=== PATIENT | female | born 1935 | race Two or more races ===

== ENCOUNTER → 2016-06-08 | Outpatient (CLI) | payer OTHER ==
--- NOTE | 2016-06-08 14:40 | RADRPT ---
PROCEDURE: XR Knees. CLINICAL INDICATION: Bilateral knee pain. TECHNIQUE: Total of eight views. Weightbearing frontal, oblique, and lateral views of the both kn ees. Patellar views of both knees. COMPARISON: No prior study is available for comparison. FINDINGS: There is no fracture or dislocation. The soft tissues are normal. There are severe degenerative changes of both knees with osteophytes, subarticular sclerosis, latera l shift of the tibia, and deformity. There is no lytic or blastic lesion. There is no radiopaque foreign body. IMPRESSION: 1. Severe degenerative changes of both knees. RPTAT: QQ .Terrence Woodson MD, MD Date Time Electronically viewed and signed by .Terrence Woodson MD, MD on 06/08/2016 14:39 .R/
== END | disposition home or self-care (01) ==
LOC: HKI 14:12
PROVIDERS: ATTEND Orthopaedic Surgery
DX: M17.0 Bilateral primary osteoarthritis of knee (principal)
CPT/HCPCS: G0463

== ENCOUNTER → 2016-08-13 | Outpatient (CLI) | payer OTHER ==
--- NOTE | 2016-08-13 10:07 | RADRPT ---
PROCEDURE: XR bone length CLINICAL INDICATION: Planning TECHNIQUE: An AP view of the pelvis, bilateral femora and proximal tibiae was obtained. COMPARISON: None available FINDINGS: Evaluation of the hips is limited due to technique. Right lower extremity: There is at least moderate hip joint space narrowing. Arthrosis is noted at the medial femorotibial compartment with genu varum alignment and [id number] apposition. The length of the right femur measured from the femoral head to the femoral intercondylar notch lilia ures approximately 41.75 cm. Left lower extremity: There is at least moderate hip joint space narrowing. May arthrosis is noted at the medial femoroti bial compartment with genu varum alignment and [id number] apposition. The length of the right femur measured from the femoral head to the femoral intercondylar notch lilia ures approximately 41.62 cm. IMPRESSION: 1. Bilateral knee arthrosis dominant at the medial femorotibial lumbar with severe narrowing, bone- on-bone apposition and genu varum alignment. 2. Femoral length measurements, as above. RPTAT: RR .Manuel Pimentel MD, Date Time Electronically viewed and signed by .Manuel Pimentel MD, on 08/13/2016 10:07 .d/
== END | disposition home or self-care (01) ==
LOC: HKI 09:20
PROVIDERS: ATTEND Orthopaedic Surgery
DX: Z01.818 Encounter for other preprocedural examination (principal); M17.0 Bilateral primary osteoarthritis of knee; M25.561 Pain in right knee; M25.562 Pain in left knee
CPT/HCPCS: 77073; G0463

== ENCOUNTER 2016-08-16 11:18 | Inpatient (IN) | payer OTHER ==
[2016-08-13 11:54] VITALS: BMI 36.0
[~2016-08-16] VITALS: Ht 160 cm; Wt 71.0 kg
[2016-08-16] VITALS (15 sets, daily range): BP systolic 100–156; BP diastolic 42–78; PULSE 80–89; RESP 15–18; Ht 160 cm; Wt 71.0 kg
[~2016-08-16 11:18] MED LIST: BUPIVACAINE LIPOSOME/PF 266 MG/20 ML VIAL INFIL SCH; CEFAZOLIN 2GM/50 ML (PMX) 50 ML X1 BEFORE INCISION IVPB SCH; CELECOXIB 400 MG PO X1 DOSE PO SCH; EXPAREL NOTE (BUPIVICAINE LIPOSOMAL) XX SCH; LACTATED RINGER'S 1,000 ML IV SCH; LIDOCAINE 2% (SDV) 5 ML INJ ONE; PAIN COCKTAIL-CEFUROXIME IRR SCH; PREGABALIN 300 MG PO X1 PO SCH; SOD CHLORIDE 0.9% IV SCH; SOD CHLORIDE 0.9% IVPB SCH; TRANEXAMIC ACID IV SCH; TRANEXAMIC ACID IVPB SCH; oxyCODONE (CR) 10 MG TAB [oxyCONTIN] X1 DOSE PO SCH; traMADOL 50 MG TAB X 1 DOSE PO SCH
[2016-08-16] MEDS: traMADol 50 MG TAB PO SCH ×2 (12:00→18:00)
[2016-08-16] MEDS ORDERED: ROCURONIUM 50 MG INJ ONE (14:15)
[2016-08-16] MEDS ORDERED: GLYCOPYRROLATE 0.4 MG INJ ONE (14:15)
[2016-08-16] MEDS ORDERED: PROPOFOL 20 ML ONE (14:15)
[2016-08-16] MEDS ORDERED: CEFAZOLIN 1 GM INJ ONE (14:15)
[2016-08-16] MEDS ORDERED: FENTAnyl 50 MCG/ML VIAL ONE (14:15)
[2016-08-16] MEDS ORDERED: NEOSTIGMINE 3 MG/3 ML SYRINGE ONE (14:15)
[2016-08-16] MEDS ORDERED: DEXAMETHASONE 4 MG/ML 1 ML INJ ONE (14:16)
[2016-08-16] MEDS ORDERED: ETOMIDATE 20 MG INJ ONE (14:16)
[2016-08-16] MEDS ORDERED: PROPOFOL 100 ML ONE (14:16)
[2016-08-16] MEDS ORDERED: MIDAZOLAM 1 MG/ML 2 ML INJ ONE (14:16)
[2016-08-16] MEDS ORDERED: ONDANSETRON 4 MG INJ ONE (14:16)
[2016-08-16] MEDS ORDERED: BACITRACIN 50000 UNITS INJ ONE (14:32)
[2016-08-16] MEDS ORDERED: POLYMYXIN B 500000 UNIT INJ ONE (14:38)
[2016-08-16] MEDS ORDERED: VANCOMYCIN 1 GM INJ ONE (14:38)
[2016-08-16] MEDS ORDERED: METOCLOPRAMIDE 10 MG INJ ONE (15:16)
[2016-08-16] MEDS ORDERED: DIPHENHYDRAMINE 50 MG INJ IV PRN (15:30)
[2016-08-16] MEDS ORDERED: METOCLOPRAMIDE 10 MG INJ IV PRN (15:30)
[2016-08-16] MEDS ORDERED: hydrALAzine 20 MG INJ IV PRN (15:30)
[2016-08-16] MEDS ORDERED: MIDAZOLAM 1 MG/ML 2 ML INJ IV PRN (15:30)
[2016-08-16] MEDS ORDERED: LABETALOL HCL 20MG INJ IV PRN (15:30)
[2016-08-16] MEDS ORDERED: ONDANSETRON 4 MG INJ IV PRN ×2 (15:30→19:30)
[2016-08-16] MEDS ORDERED: EPHEDrine SULFATE 50 MG/5 ML SYG IV PRN (15:30)
[2016-08-16] MEDS ORDERED: TRIMETHOBENZAMIDE 100 MG/ML VIAL IM PRN (15:30)
[2016-08-16] MEDS ORDERED: HYDROmorphONE (0.2 MG/ML) 10ML SYG IV PRN ×3 (15:30)
[2016-08-16] MEDS ORDERED: FENTAnyl 50 MCG/ML VIAL IV PRN ×3 (15:30)
[2016-08-16] MEDS ORDERED: MEPERIDINE 25 MG INJ IV PRN (15:30)
--- NOTE | 2016-08-16 15:59 | HPN ---
Date/Time of Note Date/Time of Note DATE: 08/16/16 TIME: 15:59 Interval H&P Admission Note Pt. seen H&P reviewed: No system changes No change from H&P on 08/10/16 by RUTH Limon MD Aug 16, 2016 15:59
--- NOTE | 2016-08-16 19:15 | PN ---
Date/Time of Note Date/Time of Note DATE: 08/16/16 TIME: 19:13 Assessment/Plan Lines/Catheters IV Catheter Type (from Nrsg): Peripheral IV Assessment/Plan Assessment/Plan Stable in PACU, s/p left TKA -continue antibiotics -pain meds as needed -ASA/SCDs for DVT prophylaxis -OOB with PT -check AM labs -monitor drain -d/c stack in AM XR of the left knee is pending at this time Subjective 24 Hr Interval Summary Stable in PACU. Moving all extremities. Denies any pain. Exam/Review of Systems Vital Signs Vitals Vital Signs Date Time Temp Pulse Resp B/P Pulse Ox O2 Delivery O2 Flow Rate FiO2 08/16/16 19:12 97.6 08/16/16 13:29 89 18 156/69 97 Room Air Exam Free Text/Dictation Hemovac: minimal Dressing dry Incision clean, dry, and intact without redness or drainage Thigh soft 5/5 Quadriceps, Tibialis Anterior, EHL, Gastroc, Soleus, Peroneals Normal sensation Palpable DT/PT, CR <2 sec No distal edema SUE ALBERTO PA-C Aug 16, 2016 19:15
--- NOTE | 2016-08-16 19:15 | OPR ---
Date/Time of Note Date/Time of Note DATE: 08/16/16 TIME: 19:14 Operative Report Free Text/Dictation Dictation # [id number] Procedure Date: Aug 16, 2016 Preoperative Diagnosis Left Knee OA Postoperative Diagnosis Same Operation Performed Left TKA Surgeon: RUTH BERRIOS MD instruction assistant principal: SUE ALBERTO PA-C Anesthesia: general, spinal Anesthesiologist: Sathish Carmona M.D. Tourniquet Time: 78 minutes Estimated Blood Loss: 50 - 100 ml's Specimens Bone and soft tissue Tubes/Drains Hemovac x 1 Complications: None Pt Condition Post Procedure: stable Disposition: PACU RUTH BERRIOS MD Aug 16, 2016 19:15
[2016-08-16] MEDS ORDERED: HYDROmorphONE 1 MG/ML SYG IV PRN (19:30)
[2016-08-16] MEDS ORDERED: NACL 0.9% 3 ML SYG IV SCH (19:30)
[2016-08-16] MEDS ORDERED: NA PHOSPHATE/BIPHOS 133 ML ENEMA PR PRN (19:30)
[2016-08-16] MEDS ORDERED: HYDROCODONE/APAP (5/325) TAB PO PRN ×2 (19:30)
[2016-08-16] MEDS ORDERED: BISACODYL 10 MG SUPP PR PRN (19:30)
[2016-08-16] MEDS ORDERED: ASPIRIN (EC) 325 MG TAB PO ONE (19:30)
[2016-08-16] MEDS ORDERED: MAGNESIUM HYDROXIDE 30ML CUP PO PRN (19:30)
[2016-08-16] MEDS ORDERED: DIPHENHYDRAMINE 25 MG CAP PO PRN (19:30)
--- NOTE | 2016-08-16 19:46 | OPR ---
DATE OF OPERATION: 08/16/2016 PREOPERATIVE DIAGNOSIS: Left knee osteoarthritis. POSTOPERATIVE DIAGNOSIS: Left knee osteoarthritis. OPERATION PERFORMED: Left total knee arthroplasty. SURGEON: Ruth Schroeder MD [employer] COORDINATOR: NIKKIE Foreman COMPONENTS USED: DePuy size 4 narrow femoral component, size 2 tibia baseplate, 7 mm polyethylene i nsert and a 32 patellar button. ANESTHESIA: Spinal plus general endotracheal intubation plus periarticular injection. ANESTHESIOLOGIST: Sathish Carmona MD TOURNIQUET TIME: 78 minutes. ESTIMATED BLOOD LOSS: 50 mL INTRAVENOUS FLUIDS: Two liters of crystalloid. SPECIMENS: Bone and soft tissue. DRAINS: Hemovac x1. COMPLICATIONS: None. DISPOSITION: The patient tolerated the procedure well and was taken to the recovery room in stable condition. INDICATIONS: The patient is an 81-year-old woman who has had progressive worsening pain in both kne es with radiographic evidence of severe osteoarthritis. She has failed nonsurgical means of treatme nt to control her pain including activity modifications, pain medications, intra-articular injection s and ambulatory assist devices. Despite these measures, she has had worsening pain. I felt she wo uld benefit from a total knee arthroplasty. The risks, benefits, and alternatives of the procedure were explained in detail to the patient. I e xplained the risks of the surgery to include but not be limited to, bleeding and possible need for b lood transfusion; infection; pain; stiffness; neurovascular injury with possible numbness, weakness, and/or paralysis anywhere from the knee down to the toes; fracture; instability; dislocation; wear and/or loosening of the prosthesis and possible need for future revision; blood clots; pulmonary emb olism; and anesthetic complications such as heart attack, stroke, GI bleed, pneumonia, and/or . Ample time was allowed for the patient to ask questions, all of which were addressed and answered. The patient understood the risks involved and wished to proceed. Informed consent was signed prior to the procedure. PROCEDURE: The patient's left knee was initialed with a marking pen in the preoperative area to arya ntify the correct operative site. The patient was brought to the operating room and transferred fro [facility] to the operating table where a spinal anesthetic was administered. The patien t was then anesthetized and intubated. A Kang catheter was placed. A timeout was performed to con firm that the left leg was the correct operative site. The patient was given 2 g of Ancef within one hour prior to the procedure. A tourniquet was placed on the operative proximal thigh. The operati ve knee and lower extremity were prepped and draped in the usual sterile fashion. The operative low er extremity was elevated and exsanguinated with an Esmarch tourniquet. The proximal thigh tourniqu et was inflated to 300 mmHg. The knee was flexed. A midline incision was made and carried down through the subcutaneous tissue a nd fat with sharp dissection. Limited medial and lateral flaps were raised. A median parapatellar arthrotomy approach was performed. Synovial fluid was normal in color and consistency. The patella was everted and the knee flexed. There were severe tricompartmental osteoarthritic changes noted. A medial release was performed at the joint line to the midcoronal plane. The ACL and PCL and remn ants of the menisci were excised. The OrthAlign navigation device was then pinned into place on the distal femur and set to 0 degrees of varus/valgus and 3 degrees of flexion. The distal cutting blo ck was pinned into place and the oscillating saw was used to make the cut. The tibia was subluxed anteriorly. The tibial OrthAlign navigation device was then pinned into plac e such that the proximal portion of the guide was centered over the junction of the medial and middl e third of the tibial tubercle with the proximal probe placed at the posterior aspect of the ACL karina tprint. The guide was then set to 0 degrees varus/valgus and 3 degrees of posterior slope. The cut ting block was then pinned into place and the oscillating saw was used to make the cut. The tibia w as sized. The extension gap was checked and accommodated a 7 mm spacer block with the knee in full extension. There was no varus or valgus instability. At this point, the femur was sized with the posterior referencing guide. Two holes were drilled in 3 degrees of external rotation. The two holes were in line with the transepicondylar axis, perpendi cular to Dahlen's line, and in line with the tibial cutoff jig brought up with the knee flexed 90 degrees and tensed with 2 lamina spreaders, suggesting the femoral rotation was correct. The four- in-one cutting block was pinned into place. The anterior and posterior cuts and chamfer cuts were m santo with the oscillating saw. The flexion gap was checked and accommodated 7 mm spacer block at 90 d egrees. There was no varus or valgus instability, suggesting the flexion and extension gaps were no w equal. The central box was cut out on the femur. The tibia was drilled and punched in proper rotation. Tri al components were placed into position with a trial insert. The patella was cut from 21 mm down to 13 mm and sized. Three holes were drilled and the trial button placed in position. With all the t rials now in place, the knee was taken through range of motion and came to full extension as evidenc ed by the fact that with the foot on my abdomen and axial loading, there was no tendency for the kne e to flex. The knee was able to be flexed to 125 degrees with good patellar tracking with no latera l tilt or subluxation. At this point, I was satisfied with the overall range of motion, stability, and patellar tracking. The trials were removed. The real components were opened. Two bags of cement were mixed, one with and one without premixed antibiotic. The knee was irrigated with antibiotic saline and sucked dry. Once the cement was in a doughy stage, the real components were cemented into place. The knee was held in full extension, and the patellar component was held with a patellar clamp. All excess cemen t was removed with curettes. As the cement was hardening, the synovial/capsular layer was infiltrat ed with a mixture of 150 mg of 0.5% Bupivacaine, 8 mg of Duramorph, 300 mcg of epinephrine, 30 mg of Toradol, 100 mcg of clonidine, 750 mg of cefuroxime and 86 mL of normal saline, followed by an inje ction of 266 mg of liposomal Bupivacaine. A Hemovac drain was placed in the deep portion of the wound and brought out the anterolateral thigh. Once the cement was completely hardened, the trial liner was removed, and the real insert was open ed. The tourniquet was let down, and there was good hemostasis. The knee was then irrigated with a mixture of Betadine/saline and then antibiotic saline with pulsatile lavage. The real insert was i mpacted into the tibia and reduced onto to the femur. The arthrotomy was closed with a few interrupted #1 Ethibond in a [id number] fashion, and then closed in a watertight fashion with a running #2 Stratafix suture. Knee flexion was checked against gravity and came to 125 degrees. The subcutaneous layer was irrigated and closed with 2-0 Statafix , and then 3-0 Vicryl and then kate on the skin. The wound was covered with an occlusive dressin g, and secured with cast padding and a bias dressing. The drain was secured with 3-0 nylon. The sponge and needle counts were correct at the end of the case. The patient was then awakened, ex tubated, and taken to the recovery room in stable condition. Dictated By: RUTH MATHIAS/JEANINE Conf#: [id number] DID#: [id number]
[2016-08-16 19:56] LABS: HEMATOCRIT 36.3 % (37.0-47.0); HEMOGLOBIN 12.2 g/dl (12.0-16.0)
[2016-08-16 20:04] LABS: CALCIUM 8.6 mg/dl (8.4-10.2); CREATININE 0.57 mg/dl (0.44-1.00); POTASSIUM 3.8 mmol/L (3.5-5.1)
--- NOTE | 2016-08-16 20:18 | RADRPT ---
PROCEDURE: XR Knee. CLINICAL INDICATION: Postoperative evaluation TECHNIQUE: AP, and cross-table lateral views of the left knee were obtained. COMPARISON: Preoperative exam 06/08/2016 FINDINGS: Distal femoral and proximal tibial metallic prosthetic components are now present and in good alignm ent on both images. Postoperative changes of the posterior patellar margin are now identified. Ant icipated postoperative gas, drainage catheter and skin kate seen. Demineralization of the [place] osseous structures is noted. RPTAT:HJJR IMPRESSION: Successful interval left knee arthroplasty compared to the study of 06/08/2016 the prosthetic compon ents in good radiographic alignment. Physician Etelvina Date Time Electronically viewed and signed by Physician Etelvina on 08/16/2016 20:18 JR/
--- NOTE | 2016-08-16 20:20 | RADRPT ---
PROCEDURE: Fluoroscopic assistance for left knee arthroplasty CLINICAL INDICATION: Degenerative joint disease of the left knee TECHNIQUE: A total of 23.4 seconds of fluoroscopic assistance is provided into the supervision of Dr. Schroeder and 40 intraoperative exposures are submitted to the PACS for review COMPARISON: 06/08/2016 FINDINGS: The images demonstrate metallic prosthetic components of the distal femur and proximal tibia, the al ignment appears satisfactory on the images submitted. RPTAT:HJJR IMPRESSION: Fluoroscopic assistance for left knee arthroplasty, the intraoperative images showing satisfactory a lignment of the prosthesis. Physician Etelvina Date Time Electronically viewed and signed by Physician Etelvina on 08/16/2016 20:20 JR/
[2016-08-16] MEDS: LACTATED RINGER'S 1,000 ML IV SCH (20:32)
[2016-08-16] MEDS: CEFAZOLIN 2 GM/50 ML (PMX) 50 ML IVPB SCH (20:41)
[2016-08-16] MEDS: DOCUSATE SODIUM 100 MG CAP PO SCH (22:23)
[2016-08-16] MEDS: PREGABALIN 50 MG CAP PO SCH (22:23)
[2016-08-16] MEDS ORDERED: TRANEXAMIC ACID 710 MG in SOD CHLORIDE 0.9% 100 ML IVPB ONE (22:30)
[2016-08-17 00:40] VITALS: BP 130/75; RESP 18
[2016-08-17 01:08] VITALS: BP 120/60; RESP 20
[2016-08-17] MEDS ORDERED: TRANEXAMIC ACID 710 MG in SOD CHLORIDE 0.9% 100 ML IVPB ONE (01:30)
[2016-08-17] MEDS: LACTATED RINGER'S 1,000 ML IV SCH ×3 (03:06→19:06)
--- NOTE | 2016-08-17 03:09 | CONS ---
Date/Time of Note Date/Time of Note DATE: 08/17/16 TIME: 03:00 Assessment/Plan Assessment/Plan Additional Assessment/Plan ASSESSMENT 81 yo female with severe Left knee Osteoarthritis who failed medical mgmt and is now s/p Left total knee arthroplasty. PLAN - cont pain mgmt - DVT ppx per surgery - check am lab - physical therapy when ok'd by surgery . Consultation Date/Type/Reason Admit Date/Time Aug 16, 2016 at 12:16 Hx of Present Illness Patient is an 81 yo female with hx of Severe Osteoarthritis of both knees. She is admitted s/p Left total knee arthroplasty. Consult was placed for medical mgmt. Patient does not have significant medical history and she does not take medications on regular bases except pain meds. Currently, she denied chest pain , shortness of breath, fever, chills, nausea/vomiting. pain seems to be controlled with current regimen. . Past Surgical History Past Surgical Hx: other (Bilateral Knee Osteoarthris) Social History Alcohol Use: none Smoking Status: Never smoker Drug Use: none Exam/Review of Systems Vital Signs Vitals Vital Signs Date Time Temp Pulse Resp B/P Pulse Ox O2 Delivery O2 Flow Rate FiO2 08/17/16 01:08 97.5 87 20 120/60 99 08/17/16 00:40 Nasal Cannula 2.0 Intake and Output 08/16/16 08/16/16 08/17/16 15:00 23:00 07:00 Intake Total 2100 ml 107.1 ml Output Total 1575 ml Balance 525 ml 107.1 ml Exam Constitutional: alert, oriented, other (sleepy, but arousable. No acute distress), well developed Head: atraumatic, normocephalic Eyes: EOMI, PERRL Respiratory: clear to auscultation, normal air movement Cardiovascular: nl pulses, regular rate and rhythm Gastrointestinal: non-tender, soft Extremities: other (left knee/ext covered. Sensations intact in her toes) Results Result Diagram: 08/16/16194008/16/161940 Results 24 hrs Laboratory Tests Test 08/16/16 19:41 Hemoglobin 12.2 Hematocrit 36.3 L Sodium Level 135 Potassium Level 3.8 Chloride Level 104 Carbon Dioxide Level 25 Anion Gap 10 Blood Urea Nitrogen 12 Creatinine 0.57 Glucose Level 202 Calcium Level 8.6 Medications Medications Current Medications Miscellaneous Information 1 ea 1 ea NOTE XX ; Start 08/16/16 at 07:00; Stop 08/20 at 06:59 Lactated Ringer's (Lr) 1,000 ml @ 125 mls/hr Q8H IV Last administered on 20:32; Admin Dose 125 MLS/HR; Start 08/16/16 at 19:06 Celecoxib (Celebrex) 200 mg DAILY PO ; Start 08/17/16 at 09:00 Tramadol HCl (Ultram) 50 mg Q6 PO ; Start 08/16/16 at 12:00; Stop 08/19/16 at 11 :59 Acetaminophen/ Hydrocodone Bitart ([place] (5/325)) 1 tab Q4H PRN PO PAIN LEVEL 1 -3; Start 08/16/16 at 19:30 Acetaminophen/ Hydrocodone Bitart ([place] (5/325)) 2 tab Q4H PRN PO PAIN LEVEL 4 -7; Start 08/16/16 at 19:30 Hydromorphone HCl 1 mg 1 mg Q3H PRN IV PAIN LEVEL 8-10; Start 08/16/16 at 19:30 Cefazolin Sodium/ Dextrose (Ancef 2 Gm/50 ml (Pmx)) 50 ml @ 100 mls/hr Q8H IVPB Last administered on 08/16/16 20:41; Admin Dose 100 MLS/HR; Start at 22:00; Stop 08/17/16 at 14:29 Ondansetron HCl (Zofran Inj) 4 mg Q6H PRN IV NAUSEA AND/OR VOMITING; Start at 19:30 Bisacodyl (Dulcolax Supp) 10 mg Q12H PRN OR CONSTIPATION; Start 08/16/16 at 19: 30 Magnesium Hydroxide (Milk Of Mag) 30 ml BID PRN PO CONSTIPATION; Start at 19:30 Sodium Biphosphate/ Sodium Phosphate (Fleet Enema) 133 ml DAILY PRN OR CONSTIPATION; Start 08/16/16 at 19:30 Docusate Sodium (Colace) 100 mg BID PO Last administered on 08/16/16 22:23; Admin Dose 100 MG; Start 08/16/16 at 21:00 Diphenhydramine HCl (Benadryl) 25 mg Q6H PRN PO PRURITUS; Start 08/16/16 at 19: 30 Aspirin (Ecotrin) 325 mg BID PO ; Start 08/17/16 at 09:00 Pantoprazole (Protonix Tab) 40 mg BID@,18 PO ; Start 08/17/16 at 06:00 Pregabalin (Lyrica) 50 mg BID PO Last administered on 08/16/16t 22:23; Admin Dose 50 MG; Start 08/16/16 at 21:00 ANTHONY JOHNSON MD Aug 17, 2016 03:09
[2016-08-17 05:29] VITALS: BP 132/73; PULSE 86; RESP 18
[2016-08-17 05:29] LABS: HEMATOCRIT 39.1 % (37.0-47.0); HEMOGLOBIN 13.2 g/dl (12.0-16.0)
[2016-08-17 05:37] LABS: POTASSIUM 4.3 mmol/L (3.5-5.1)
[2016-08-17 05:40] LABS: CREATININE 0.51 mg/dl (0.44-1.00)
[2016-08-17] MEDS: traMADol 50 MG TAB PO SCH ×5 (06:08→23:38)
[2016-08-17] MEDS: CEFAZOLIN 2 GM/50 ML (PMX) 50 ML IVPB SCH ×2 (06:08→14:49)
[2016-08-17] MEDS: PANTOPRAZOLE (EC) 40 MG TAB PO SCH ×2 (06:08→18:04)
[2016-08-17 06:13] LABS: ADD UMIC NO; URINE BILIRUBIN (Dip) NEGATIVE (NEGATIVE); URINE BLOOD (Dip) NEGATIVE (NEGATIVE); URINE COLOR LT. YELLOW (YELLOW); URINE KETONES (Dip) NEGATIVE (NEGATIVE); URINE LEUKOCYTE ESTERASE (Dip) NEGATIVE (NEGATIVE); URINE NITRITE (Dip) NEGATIVE (NEGATIVE); URINE TOTAL PROTEIN (Dip) NEGATIVE (NEGATIVE); URINE UROBILINOGEN (Dip) 0.2 E.U./dL (0.1-1.0)
[2016-08-17 08:23] VITALS: BP 126/63; RESP 20
[2016-08-17] MEDS: ASPIRIN (EC) 325 MG TAB PO SCH ×2 (08:44→20:24)
[2016-08-17] MEDS: DOCUSATE SODIUM 100 MG CAP PO SCH ×2 (08:44→20:24)
[2016-08-17] MEDS: CELECOXIB 200 MG CAP PO SCH (08:44)
[2016-08-17] MEDS: PREGABALIN 50 MG CAP PO SCH ×2 (08:44→20:24)
--- NOTE | 2016-08-17 08:56 | PN ---
Date/Time of Note Date/Time of Note DATE: 08/17/16 TIME: 08:54 Assessment/Plan Lines/Catheters IV Catheter Type (from Nrsg): Peripheral IV Kang in Place (from Nrsg): Yes Assessment/Plan Assessment/Plan Stable POD #1, s/p left TKA -d/c abx -pain meds prn -ASA/SCDs for DVT prophylaxis -OOB with PT -check AM labs -drain removed -d/c planning. Will plan to go home upon discharge Subjective 24 Hr Interval Summary No acute overnight events. Denies significant knee pain. Did not start PT yesterday. VSS, afebrile. Will plan to go home upon discharge. Exam/Review of Systems Vital Signs Vitals Vital Signs Date Time Temp Pulse Resp B/P Pulse Ox O2 Delivery O2 Flow Rate FiO2 08/17/16 08:23 97.5 89 20 126/63 94 08/17/16 05:29 Nasal Cannula 2.0 Intake and Output 08/16/16 08/16/16 08/17/16 15:00 23:00 07:00 Intake Total 2100 ml 1457.1 ml Output Total 1575 ml 3500 ml Balance 525 ml -2042.9 ml Exam Free Text/Dictation Hemovac: 125cc Dressing dry Incision clean, dry, and intact without redness or drainage Thigh soft 5/5 Quadriceps, Tibialis Anterior, EHL, Gastroc, Soleus, Peroneals Normal sensation Palpable DT/PT, CR <2 sec No distal edema Results Result Diagram: 08/17/1641908/17/16419 SUE ALBERTO PA-C Aug 17, 2016 08:56
[2016-08-17] MEDS ORDERED: GLUCOSE GEL 15 GRAM TUBE PO PRN ×2 (12:30)
[2016-08-17] MEDS ORDERED: DEXTROSE 50% 50 ML SYRINGE IV PRN ×2 (12:30)
[2016-08-17] MEDS ORDERED: GLUCAGON 1 MG INJ IM PRN (12:30)
[2016-08-17] MEDS ORDERED: GLUCOSE GEL 15 GRAM TUBE BUCCAL PRN (12:30)
--- NOTE | 2016-08-17 13:16 | PDOCDIS ---
Discharge Instructions DIAGNOSIS Discharge Diagnosis: s/p left TKA CONDITION Patient Condition: Good HOME CARE INSTRUCTIONS: Diet Instructions: RegularSpecial Diet: RD ACTIVITY: Activity Restrictions: Slowly Increase Activity Rest between Activity Avoid heavy lifting Do not operate Machinery Do not operate Power Tool Avoid Heavy Housework Keep Limb Elevated Bathing Restrictions: Shower FOLLOW UP/APPOINTMENTS Appointments follow up on 09/06/16 OTHER ORDERS: Other Orders: S/P TKA Physical Therapy: Three times per week at home x 2 weeks Daily in Rehab/SNF WB STATUS: WBAT 1. Strengthening exercises for both upper and un-operated lower extremities. 2. Gait training with front wheeled walker 3. Active range of motion exercises to operative knee. 4. When not working on knee range of motion exercises, distal towel roll under operative ankle/distal calf to promote full extension. 5. DO NOT PUT ANYTHING BEHIND OPERATIVE KNEE!!! 6. Quadriceps and hamstring strengthening. 7. May switch to cane in contra lateral hand 6 weeks after surgery. 8. Physical Therapy can open case if nursing is not available. 9. Use Ice Machine as instructed from date of surgery while at rest 3X/day. 10. Patient requires mobile SCDs to reduce risk of developing DVT following TKA. Patient will use the mobile SCDs for 30 days postoperatively. Bathing assistance by home health aide twice weekly if Medicare patient. Occupational Therapy: Evaluation for assistive devices and ADL training. Wound Care: Keep incision dry & covered with Tegaderm until first visit with Dr. Schroeder Anticoagulation Orders: Enteric Coated Aspirin 325 mg po bid x 6 weeks from date of surgery Follow-up:Call for an appointment with Dr. Schroeder in 1 week after discharged from hospital at DME Orders: RANDAL, 3-in-1 Commode, Polar ice machine, Mobile SCDs SUE ALBERTO PA-C Aug 17, 2016 13:16
[2016-08-17] MEDS ORDERED: TRAM50TA2 PO (13:17)
[2016-08-17] MEDS ORDERED: GABA300C PO (13:17)
[2016-08-17] MEDS ORDERED: PANT40TA4 PO (13:17)
[2016-08-17] MEDS ORDERED: ASPI325T32 PO (13:17)
[2016-08-17] MEDS ORDERED: HYDR-905 PO (13:17)
--- NOTE | 2016-08-17 14:52 | PN ---
Date/Time of Note Date/Time of Note DATE: 08/17/16 TIME: 14:48 Assessment/Plan VTE Prophylaxis VTE Prophylaxis Intervention: SCD's Lines/Catheters IV Catheter Type (from Nrs): Peripheral IV Urinary Cath still in place: No Assessment/Plan Chief Complaint/Hosp Course Assessment/Plan 1. Left knee osteoarthritis. Patient s/p left total knee arthroplasty. continue post op care. cont pain management as needed. Physical therapy per surgery 2. Hyperglycemia. follow up on a1c. will provide with insulin as needed DISPO/PLAN: Stable at present. d/c planning Discussed plan of care Jim Problems: Subjective 24 Hr Interval Summary Free Text/Dictation appears comfortable. no specific complaints Exam/Review of Systems Vital Signs Vitals Vital Signs Date Time Temp Pulse Resp B/P Pulse Ox O2 Delivery O2 Flow Rate FiO2 08/17/16 08:23 97.5 89 20 126/63 94 08/17/16 05:29 Nasal Cannula 2.0 Intake and Output 08/16/16 08/16/16 08/17/16 14:59 22:59 06:59 Intake Total 2100 ml 1457.1 ml Output Total 1575 ml 3500 ml Balance 525 ml -2042.9 ml Exam Constitutional: alert, oriented Psych: nl mood/affect, no complaints Head: normocephalic Eyes: nl conjunctiva Neck: non-tender, supple, No jvd Respiratory: clear to auscultation Cardiovascular: nl pulses, regular rate and rhythm Gastrointestinal: non-tender, soft Musculoskeletal: other (left lower extremity in dressing ) Neurological: REIMBURSEMENT ANALYST II-XII intact, nl mental status, nl speech Skin: other (surgical site left lower extremity CDI ) Results Result Diagram: 08/17/16 0420 08/17/16 0420 Results 24 hrs Laboratory Tests Test 08/16/16 19:41 08/17/16 04:20 08/17/16 05:00 08/17/16 11:34 Hemoglobin 12.2 13.2 Hematocrit 36.3 L 39.1 Sodium Level 135 138 Potassium Level 3.8 4.3 Chloride Level 104 99 Carbon Dioxide Level 25 27 Anion Gap 10 16 Blood Urea Nitrogen 12 9 Creatinine 0.57 0.51 Glucose Level 202 205 Calcium Level 8.6 9.0 Urine Color LT. YELLOW Urine Clarity CLEAR Urine pH 6.5 Urine Specific [place] 1.010 Urine Ketones NEGATIVE Urine Nitrite NEGATIVE Urine Bilirubin NEGATIVE Urine Urobilinogen 0.2 E.U./dL Urine Leukocyte Esterase NEGATIVE Urine Hemoglobin NEGATIVE Urine Glucose 0.25% H Urine Total Protein NEGATIVE Bedside Glucose 127 Medications Medications Current Medications Miscellaneous Information 1 ea 1 ea NOTE XX ; Start 08/16/16 at 07:00; Stop 08/20 at 06:59 Lactated Ringer's (Lr) 1,000 ml @ 125 mls/hr Q8H IV Last administered on 12:32; Admin Dose 125 MLS/HR; Start 08/16/16 at 19:06 Celecoxib (Celebrex) 200 mg DAILY PO Last administered on 08/17/16 08:44; Admin Dose 200 MG; Start 08/17/16 at 09:00 Tramadol HCl (Ultram) 50 mg Q6 PO Last administered on 08/17/16 12:32; Admin Dose 50 MG; Start 08/16/16 at 12:00; Stop 08/19/16 at 11:59 Acetaminophen/ Hydrocodone Bitart ([place] (5/325)) 1 tab Q4H PRN PO PAIN LEVEL 1 -3; Start 08/16/16 at 19:30 Acetaminophen/ Hydrocodone Bitart ([place] (5/325)) 2 tab Q4H PRN PO PAIN LEVEL 4 -7; Start 08/16/16 at 19:30 Hydromorphone HCl (Dilaudid) 1 mg Q3H PRN IV PAIN LEVEL 8-10; Start 08/16/16 at 19:30 Ondansetron HCl (Zofran Inj) 4 mg Q6H PRN IV NAUSEA AND/OR VOMITING; Start at 19:30 Bisacodyl (Dulcolax Supp) 10 mg Q12H PRN [place] CONSTIPATION; Start 08/16/16 at 19: 30 Magnesium Hydroxide (Milk Of Mag) 30 ml BID PRN PO CONSTIPATION; Start at 19:30 Sodium Biphosphate/ Sodium Phosphate (Fleet Enema) 133 ml DAILY PRN [place] CONSTIPATION; Start 08/16/16 at 19:30 Docusate Sodium (Colace) 100 mg BID PO Last administered on 08/17/16 08:44; Admin Dose 100 MG; Start 08/16/16 at 21:00 Diphenhydramine HCl (Benadryl) 25 mg Q6H PRN PO PRURITUS; Start 08/16/16 at 19: 30 Aspirin (Ecotrin) 325 mg BID PO Last administered on 08/17/16 08:44; Admin Dose 325 MG; Start 08/17/16 at 09:00 Pantoprazole (Protonix Tab) 40 mg BID@06,18 PO Last administered on 08/17/16 06:08; Admin Dose 40 MG; Start 08/17/16 at 06:00 Pregabalin (Lyrica) 50 mg BID PO Last administered on 08/17/16 08:44; Admin Dose 50 MG; Start 08/16/16 at 21:00 Diagnostic Test (Pha) (Accu-Chek) 1 ea 02 XX ; Start 08/18/16 at 02:00 Miscellaneous Information 1 ea NOTE XX ; Start 08/17/16 at 12:30 Glucose (Glutose) 15 gm Q15M PRN PO DECREASED GLUCOSE; Start 08/17/16 at 12:30 Glucose (Glutose) 22.5 gm Q15M PRN PO DECREASED GLUCOSE; Start 08/17/16 at 12: 30 Dextrose (D50w Syringe) 25 ml Q15M PRN IV DECREASED GLUCOSE; Start 08/17/16 at 12:30 Dextrose (D50w Syringe) 50 ml Q15M PRN IV DECREASED GLUCOSE; Start 08/17/16 at 12:30 Glucagon (Glucagen) 1 mg Q15M PRN IM DECREASED GLUCOSE; Start 08/17/16 at 12:30 Glucose (Glutose) 15 gm Q15M PRN BUCCAL DECREASED GLUCOSE; Start 08/17/16 at 12 :30 WINIFRED ALVAREZ Aug 17, 2016 14:52
[2016-08-17] MEDS: INSULIN ASPART [NOVOLOG] 3 ML PEN SC SCH ×2 (17:25→20:26)
[2016-08-17 19:40] VITALS: BP 102/55; RESP 20
[2016-08-18] MEDS ORDERED: ACCU-CHEK XX SCH (02:00)
[2016-08-18] MEDS: LACTATED RINGER'S 1,000 ML IV SCH ×2 (03:06→11:06)
[2016-08-18] MEDS: traMADol 50 MG TAB PO SCH ×2 (05:40→12:25)
[2016-08-18] MEDS: PANTOPRAZOLE (EC) 40 MG TAB PO SCH (05:40)
[2016-08-18 06:22] LABS: HEMATOCRIT 31.4 % (37.0-47.0); HEMOGLOBIN 10.7 g/dl (12.0-16.0)
[2016-08-18 06:38] LABS: CALCIUM 8.4 mg/dl (8.4-10.2); CREATININE 0.7 mg/dl (0.44-1.00); POTASSIUM 3.9 mmol/L (3.5-5.1)
[2016-08-18] MEDS: INSULIN ASPART [NOVOLOG] 3 ML PEN SC SCH ×2 (07:42→11:40)
[2016-08-18 07:56] VITALS: BP 115/57; RESP 18
[2016-08-18] MEDS: DOCUSATE SODIUM 100 MG CAP PO SCH (08:35)
[2016-08-18] MEDS: PREGABALIN 50 MG CAP PO SCH (08:35)
[2016-08-18] MEDS: ASPIRIN (EC) 325 MG TAB PO SCH (08:35)
[2016-08-18] MEDS: CELECOXIB 200 MG CAP PO SCH (08:35)
--- NOTE | 2016-08-18 09:09 | PN ---
Date/Time of Note Date/Time of Note DATE: 08/18/16 TIME: 09:08 Assessment/Plan Lines/Catheters IV Catheter Type (from Nrsg): Saline Lock Kang in Place (from Nrsg): No Assessment/Plan Assessment/Plan Stable POD #2, s/p left TKA -pain meds as needed -ASA/SCDs -OOB with PT -dressing changed -d/c home today -follow up in the office in 1 week Subjective 24 Hr Interval Summary No acute overnight events. Only complaining of mild pain to her knee. Progressing well with PT. VSS, afebrile. Would like to go home today. Exam/Review of Systems Vital Signs Vitals Vital Signs Date Time Temp Pulse Resp B/P Pulse Ox O2 Delivery O2 Flow Rate FiO2 08/18/16 07:56 97.3 79 18 115/57 91 08/17/16 18:26 21 08/17/16 05:29 Nasal Cannula 2.0 Intake and Output 08/17/16 08/17/16 08/18/16 15:00 23:00 07:00 Intake Total 2330 ml 240 ml Balance 2330 ml 240 ml Exam Free Text/Dictation Dressing dry Incision clean, dry, and intact without redness or drainage Thigh soft 5/5 Quadriceps, Tibialis Anterior, EHL, Gastroc, Soleus, Peroneals Normal sensation Palpable DT/PT, CR <2 sec No distal edema Results Result Diagram: 08/18/16 0445 08/18/16 0445 SUE ALBERTO PA-C Aug 18, 2016 09:09
--- NOTE | 2016-08-18 15:10 | PN ---
Date/Time of Note Date/Time of Note DATE: 08/18/16 TIME: 15:08 Assessment/Plan VTE Prophylaxis VTE Prophylaxis Intervention: other (Per surgeon recommendations) Lines/Catheters IV Catheter Type (from Nrsg): Saline Lock Urinary Cath still in place: No Assessment/Plan Chief Complaint/Hosp Course Assessment/Plan 1. Left knee osteoarthritis. Patient s/p left total knee arthroplasty. continue post op care. cont pain management as needed. Physical therapy per surgery. Improving at present per 2. Hyperglycemia. A1c 6.1. Stable at present. Will monitor DISPO/PLAN: DC planning Discussed plan of care Jim Problems: Subjective 24 Hr Interval Summary Free Text/Dictation Resting at this time. No apparent distress. Comfortable at presentConstitutional: alert, oriented Exam/Review of Systems Vital Signs Vitals Vital Signs Date Time Temp Pulse Resp B/P Pulse Ox O2 Delivery O2 Flow Rate FiO2 08/18/16 07:56 97.3 79 18 115/57 91 08/17/16 18:26 21 08/17/16 05:29 Nasal Cannula 2.0 Intake and Output 08/17/16 08/17/16 08/18/16 15:00 23:00 07:00 Intake Total 2330 ml 240 ml Balance 2330 ml 240 ml Exam Constitutional: alert, oriented, comfortable at present Psych: nl mood/affect, no complaints Neck: non-tender, supple, No jvd Respiratory: No adventitious lung sounds Cardiovascular: nl pulses, regular rate and rhythm Gastrointestinal: non-tender, soft Musculoskeletal: other (left lower extremity in dressing ) Neurological: WOUND TREATMENT RN II-XII intact, nl mental status, nl speech Skin: other (surgical site left lower extremity CDI ) Results Result Diagram: 08/18/16 0445 08/18/16 0445 Results 24 hrs Laboratory Tests Test 08/17/16 17:19 08/17/16 20:22 08/18/16 04:45 08/18/16 07:39 Bedside Glucose 125 178 123 Hemoglobin 10.7 L Hematocrit 31.4 L Sodium Level 137 Potassium Level 3.9 Chloride Level 104 Carbon Dioxide Level 29 Anion Gap 8 # Blood Urea Nitrogen 15 Creatinine 0.70 Glucose Level 115 # Calcium Level 8.4 Test 08/18/16 11:51 Bedside Glucose 138 Medications Medications Current Medications Miscellaneous Information 1 ea 1 ea NOTE XX ; Start 08/16/16 at 07:00; Stop 08/20 at 06:59 Lactated Ringer's (Lr) 1,000 ml @ 125 mls/hr Q8H IV Last administered on 12:32; Admin Dose 125 MLS/HR; Start 08/16/16 at 19:06 Celecoxib (Celebrex) 200 mg DAILY PO Last administered on 08/18/16 08:35; Admin Dose 200 MG; Start 08/17/16 at 09:00 Tramadol HCl (Ultram) 50 mg Q6 PO Last administered on 08/18/16 12:25; Admin Dose 50 MG; Start 08/16/16 at 12:00; Stop 08/19/16 at 11:59 Acetaminophen/ Hydrocodone Bitart ([place] (5/325)) 1 tab Q4H PRN PO PAIN LEVEL 1 -3; Start 08/16/16 at 19:30 Acetaminophen/ Hydrocodone Bitart ([place] (5/325)) 2 tab Q4H PRN PO PAIN LEVEL 4 -7; Start 08/16/16 at 19:30 Hydromorphone HCl (Dilaudid) 1 mg Q3H PRN IV PAIN LEVEL 8-10; Start 08/16/16 at 19:30 Ondansetron HCl (Zofran Inj) 4 mg Q6H PRN IV NAUSEA AND/OR VOMITING; Start at 19:30 Bisacodyl (Dulcolax Supp) 10 mg Q12H PRN [place] CONSTIPATION; Start 08/16/16 at 19: 30 Magnesium Hydroxide (Milk Of Mag) 30 ml BID PRN PO CONSTIPATION; Start at 19:30 Sodium Biphosphate/ Sodium Phosphate (Fleet Enema) 133 ml DAILY PRN [place] CONSTIPATION; Start 08/16/16 at 19:30 Docusate Sodium (Colace) 100 mg BID PO Last administered on 08/18/16 08:35; Admin Dose 100 MG; Start 08/16/16 at 21:00 Diphenhydramine HCl (Benadryl) 25 mg Q6H PRN PO PRURITUS; Start 08/16/16 at 19: 30 Aspirin (Ecotrin) 325 mg BID PO Last administered on 08/18/16 08:35; Admin Dose 325 MG; Start 08/17/16 at 09:00 Pantoprazole (Protonix Tab) 40 mg BID@06,18 PO Last administered on 08/18/16 05:40; Admin Dose 40 MG; Start 08/17/16 at 06:00 Pregabalin (Lyrica) 50 mg BID PO Last administered on 08/18/16 08:35; Admin Dose 50 MG; Start 08/16/16 at 21:00 Diagnostic Test (Pha) (Accu-Chek) 1 ea 02 XX ; Start 08/18/16 at 02:00 Miscellaneous Information 1 ea NOTE XX ; Start 08/17/16 at 12:30 Glucose (Glutose) 15 gm Q15M PRN PO DECREASED GLUCOSE; Start 08/17/16 at 12:30 Glucose (Glutose) 22.5 gm Q15M PRN PO DECREASED GLUCOSE; Start 08/17/16 at 12: 30 Dextrose (D50w Syringe) 25 ml Q15M PRN IV DECREASED GLUCOSE; Start 08/17/16 at 12:30 Dextrose (D50w Syringe) 50 ml Q15M PRN IV DECREASED GLUCOSE; Start 08/17/16 at 12:30 Glucagon (Glucagen) 1 mg Q15M PRN IM DECREASED GLUCOSE; Start 08/17/16 at 12:30 Glucose (Glutose) 15 gm Q15M PRN BUCCAL DECREASED GLUCOSE; Start 08/17/16 at 12 :30 WINIFRED ALVAREZ Aug 18, 2016 15:10
--- NOTE | 2016-08-18 17:48 | DS ---
DATE OF ADMISSION: 08/16/2016 DATE OF DISCHARGE: 08/18/2016 CONDITION ON DISCHARGE: Stable ADMITTING DIAGNOSIS: Left knee osteoarthritis. DISCHARGE DIAGNOSIS: Status post left total knee arthroplasty. PROCEDURE PERFORMED: Left total knee arthroplasty. HOSPITAL COURSE: This is an 81-year-old female who was seen in the clinic initially complaining of left knee pain. X-rays were obtained and demonstrated advanced osteoarthritis of the left knee and it was thought she would benefit from a left total knee arthroplasty. On 08/16/2016, the patient was admitted and taken to the operating room where she underwent a left total knee arthroplasty. There were no intraoperative complications. The patient tolerated the procedure well. She was taken to the recovery room in stable condition. Pain was well controlled with oral pain medication. She was started on aspirin and SCDs for DVT prophylaxis. She remained hemodynamically stable and neurovascularly intact throughout her hospital stay. She began physical therapy on postoperative day 1 and elected to go home on postoperative day 2. Prior to discharge, the incision was inspected and noted to be clean, dry and intact. Dressing changes were done prior to the patient going home. LABORATORY ANALYSIS : Hemoglobin of 10.7, hematocrit 31.4. Chemistry panel was within normal limits. DISCHARGE MEDICATIONS: 1. [place] 7.5/325 mg. 2. Tramadol 50 mg, 3. Protonix 40 mg. 4. Aspirin 325 mg. 5. Neurontin 300 mg. 5. Additionally, the patient is to resume all her normal home medications. DISCHARGE INSTRUCTIONS: The patient will be discharged home in stable condition. She is to resume her normal diet. Activity includes weightbearing as tolerated on left lower extremity. She will begin physical therapy with home health. She will be discharged home with the medications noted above. She should resume all of her normal home medications. The patient is to call the office or go to the emergency room for any concerns including increased redness, swelling, drainage or fever or any concerns regarding the operation or site of incision. FOLLOW UP: The patient is to follow up in the office on 08/27/2016. Dictated By: SUE STRANGE/JEANINE Conf#: [id number] DID#: [id number] [facility] HEALTHArsenio
== END 2016-08-18 16:45 | disposition home health service (06) | DRG 470 ==
LOC: REC 12:16 → MS1 21:45
PROVIDERS: ADMIT Orthopaedic Surgery; ATTEND Orthopaedic Surgery
PROC: 0SRD0J9 Replacement of Left Knee Joint with Synthetic Substitute, Cemented, Open Approach (ICD-10-PCS; principal; 2016-08-16 16:00)
DX: M17.12 Unilateral primary osteoarthritis, left knee (principal); R73.9 Hyperglycemia, unspecified
CPT/HCPCS: 73560; 73562; 80048; 81003; 82962; 83036; 85014; 85018; 86850; 86900; 86901; 86920; 87081; 87086; 88304; 88311; 97110; 97116; 97163; 97530; C1776; J0690; J1100; J1815; J2250; J2405; J2710; J2765; J3010; J3370; J7120

== ENCOUNTER → 2016-08-27 | Outpatient (CLI) | payer OTHER ==
[~2016-08-27] MED LIST changes: +ASPI325T32 PO; -BUPIVACAINE LIPOSOME/PF 266 MG/20 ML VIAL INFIL SCH; -CEFAZOLIN 2GM/50 ML (PMX) 50 ML X1 BEFORE INCISION IVPB SCH; -CELECOXIB 400 MG PO X1 DOSE PO SCH; -EXPAREL NOTE (BUPIVICAINE LIPOSOMAL) XX SCH; +GABA300C PO; +HYDR-905 PO; -LACTATED RINGER'S 1,000 ML IV SCH; -LIDOCAINE 2% (SDV) 5 ML INJ ONE; -PAIN COCKTAIL-CEFUROXIME IRR SCH; +PANT40TA4 PO; -PREGABALIN 300 MG PO X1 PO SCH; -SOD CHLORIDE 0.9% IV SCH; -SOD CHLORIDE 0.9% IVPB SCH; +TRAM50TA2 PO; -TRANEXAMIC ACID IV SCH; -TRANEXAMIC ACID IVPB SCH; -oxyCODONE (CR) 10 MG TAB [oxyCONTIN] X1 DOSE PO SCH; -traMADOL 50 MG TAB X 1 DOSE PO SCH
--- NOTE | 2016-08-27 11:47 | HKNOTE ---
DATE OF SERVICE: 08/27/2016 INTERVAL HISTORY: The patient presents today for her first postoperative evaluation. She is 10 days status post left total knee arthroplasty. She is doing well overall. She is having some moderate pain, but is otherwise doing well. Home health has not come to her house for therapy yet. She has been taking her pain medicine and aspirin twice daily as recommended. She denies any fevers or chills. She presents today for her first postoperative evaluation. PHYSICAL EXAMINATION: Today, she is alert and oriented x4 and in no acute distress. She is ambulating with a front-wheel walker. Exam of the incision demonstrates it to be clean, dry and intact. Earnestine are in place. She does have some moderate soft tissue swelling around the knee joint with some ecchymosis. There is no distal edema noted. Homans sign is negative. Range of motion is 0-90 degrees. Varus and valgus forces are stable. Compartments are otherwise soft. She is neurovascularly intact distally. IMAGING: X-rays of the left knee were obtained today and reviewed by me. They demonstrate good anatomic alignment with no fractures or dislocations identified. ASSESSMENT: Ten days status post left total knee arthroplasty, doing well. PLAN: The earnestine were removed today and Steri-Strips were applied. She is to begin home health physical therapy and eventually transition to outpatient physical therapy program. She is to continue aspirin 325 mg twice daily for 6 weeks for DVT prophylaxis. We will see her back in 4 weeks for repeat evaluation. The patient is to call the office in the meantime if she has any concerns. Dictated By: SUE STRANGE/JEANINE Conf#: [id number] DID#: [id number] [place]
--- NOTE | 2016-08-27 16:33 | RADRPT ---
PROCEDURE: XR Left Knee. CLINICAL INDICATION: Left knee pain. Postop. TECHNIQUE: Two views. Frontal and lateral. COMPARISON: 08/16/2016. FINDINGS: There is no fracture or dislocation. The soft tissues are normal. There is a total left knee arthroplasty which appears satisfactory. There is no lytic or blastic lesion. There is no joint effusion. IMPRESSION: 1. Satisfactory postoperative appearance of the left knee. RPTAT: QQ .Terrence Woodson MD, MD Date Time Electronically viewed and signed by .Terrence Woodson MD, on 08/27/2016 16:33 .R/
== END | disposition home or self-care (01) ==
LOC: HKI 09:07
PROVIDERS: ATTEND Orthopaedic Surgery
DX: Z47.1 Aftercare following joint replacement surgery (principal); Z96.652 Presence of left artificial knee joint

== ENCOUNTER → 2016-09-24 | Outpatient (CLI) | payer OTHER | END | disposition home or self-care (01) | LOC: HKI 10:12 | PROVIDERS: ATTEND Orthopaedic Surgery | DX: Z47.1 Aftercare following joint replacement surgery (principal); M17.12 Unilateral primary osteoarthritis, left knee; Z96.652 Presence of left artificial knee joint ==

== ENCOUNTER → 2016-11-02 | Outpatient (CLI) | payer OTHER ==
--- NOTE | 2016-11-02 14:06 | RADRPT ---
PROCEDURE: Left knee radiographs. CLINICAL INDICATION: Left knee pain. Postop. TECHNIQUE: Three views. Weight bearing. Frontal, lateral, and patellar view. COMPARISON: 08/27/2016. FINDINGS: There is no fracture or dislocation. The soft tissues are normal. There is a total left knee arthroplasty which appears satisfactory. There is no lytic or blastic lesion. There is no joint effusion. IMPRESSION: 1. Satisfactory postoperative appearance of the left knee. RPTAT: QQ .Terrence Woodson MD, MD Date Time Electronically viewed and signed by .Terrence Woodson MD, on 11/02/2016 14:06 .R/
== END | disposition home or self-care (01) ==
LOC: HKI 10:19
PROVIDERS: ATTEND Orthopaedic Surgery
DX: Z47.1 Aftercare following joint replacement surgery (principal); Z96.652 Presence of left artificial knee joint; M17.0 Bilateral primary osteoarthritis of knee

== ENCOUNTER → 2016-12-10 | Outpatient (CLI) | payer OTHER ==
--- NOTE | 2016-12-10 16:36 | RADRPT ---
PROCEDURE: Limited x-ray of both lower extremities. CLINICAL INDICATION: Bilateral leg pain. TECHNIQUE: Single frontal view of both lower extremities was obtained from the hips to the calves. COMPARISON: Bilateral lower extremity radiograph dated 08/13/2016 michelle left knee radiographs dated 11/02/2016 michelle FINDINGS: The hips are not well seen due to overlying soft tissues. There are severe degenerative changes of the right knee as seen previously. There is a left knee total arthroplasty which appears satisfacto ry. IMPRESSION: 1. It is not well seen. 2. Severe degenerative changes of the right knee. 3. Left knee total arthroplasty. RPTAT: QQ .Terrence Woodson MD, MD Date Time Electronically viewed and signed by .Terrence Woodson MD, MD on 12/10/2016 16:36 .R/
== END | disposition home or self-care (01) ==
LOC: HKI 11:01
PROVIDERS: ATTEND Orthopaedic Surgery
DX: M25.561 Pain in right knee (principal); M17.11 Unilateral primary osteoarthritis, right knee; Z96.652 Presence of left artificial knee joint
CPT/HCPCS: 77073; Z7500; G0463

== ENCOUNTER 2016-12-13 12:32 | Inpatient (IN) | payer OTHER ==
[~2016-12-13] VITALS: Ht 147.3 cm; Wt 73.3 kg
[2016-12-13] VITALS (15 sets, daily range): BP systolic 103–135; BP diastolic 44–69; PULSE 85–92; RESP 13–20; Ht 147.3 cm; Wt 73.3 kg
[2016-12-13] MEDS: traMADol 50 MG TAB PO SCH ×2 (12:00→18:00)
[~2016-12-13 12:32] MED LIST changes: +DESFLURANE 15 MIN ONE; +LIDOCAINE 2% (SDV) 5 ML INJ ONE
[2016-12-13] MEDS ORDERED: ADV25050 INHALATION ×2 (12:59→13:00)
[2016-12-13] MEDS ORDERED: MONT10TA24 PO (12:59)
[2016-12-13] MEDS ORDERED: GABA400C14 PO (12:59)
[2016-12-13] MEDS ORDERED: ETOD400T PO (13:01)
[2016-12-13] MEDS ORDERED: ASPI81TA3 PO (13:01)
[2016-12-13] MEDS ORDERED: LOSA25TA5 PO (13:02)
[2016-12-13] MEDS ORDERED: LORA10CA PO (13:06)
[2016-12-13] MEDS ORDERED: IBUP-1542 PO (13:06)
[2016-12-13] MEDS ORDERED: OMEP20CA16 PO (13:07)
[2016-12-13] MEDS ORDERED: ALBU8.5H3 INH (13:08)
[2016-12-13] MEDS ORDERED: LACTATED RINGER'S 1,000 ML IV SCH (13:15)
[2016-12-13] MEDS ORDERED: PREGABALIN 300 MG PO X1 PO SCH (13:15)
[2016-12-13] MEDS ORDERED: oxyCODONE (CR) 10 MG TAB [oxyCONTIN] X1 DOSE PO SCH (13:15)
[2016-12-13] MEDS ORDERED: ONDANSETRON 4 MG IV X 1 DOSE IV SCH (13:16)
[2016-12-13] MEDS ORDERED: CELECOXIB 400 MG PO X1 DOSE PO SCH (13:16)
[2016-12-13] MEDS ORDERED: traMADOL 50 MG TAB X 1 DOSE PO SCH (13:16)
[2016-12-13] MEDS ORDERED: CEFAZOLIN 2GM/50 ML (PMX) 50 ML X1 BEFORE INCISION IVPB SCH (13:17)
[2016-12-13] MEDS ORDERED: TRANEXAMIC ACID 590 MG in SOD CHLORIDE 0.9% 94.1 ML IV SCH (13:17)
[2016-12-13] MEDS ORDERED: PAIN COCKTAIL-CEFUROXIME IRR SCH ×7 (13:18)
[2016-12-13] MEDS ORDERED: BUPIVACAINE LIPOSOME/PF 266 MG/20 ML VIAL INFIL SCH (13:18)
[2016-12-13] MEDS ORDERED: TRANEXAMIC ACID 590 MG in SOD CHLORIDE 0.9% 100 ML IVPB SCH (13:18)
[2016-12-13] MEDS ORDERED: GLYCOPYRROLATE 0.4 MG INJ ONE (14:28)
[2016-12-13] MEDS ORDERED: ROCURONIUM 50 MG INJ ONE (14:28)
[2016-12-13] MEDS ORDERED: PROPOFOL 20 ML ONE (14:28)
[2016-12-13] MEDS ORDERED: NEOSTIGMINE 3 MG/3 ML SYRINGE ONE (14:28)
[2016-12-13] MEDS ORDERED: CEFAZOLIN 1 GM INJ ONE (14:28)
[2016-12-13] MEDS ORDERED: DEXAMETHASONE 4 MG/ML 1 ML INJ ONE (14:29)
[2016-12-13] MEDS ORDERED: ONDANSETRON 4 MG INJ ONE (14:29)
[2016-12-13] MEDS ORDERED: FENTAnyl 50 MCG/ML VIAL ONE (14:29)
[2016-12-13] MEDS ORDERED: ETOMIDATE 20 MG INJ ONE (14:29)
[2016-12-13] MEDS ORDERED: PROPOFOL 100 ML ONE (14:29)
[2016-12-13] MEDS ORDERED: MIDAZOLAM 1 MG/ML 2 ML INJ ONE (14:29)
[2016-12-13] MEDS ORDERED: EXPAREL NOTE (BUPIVICAINE LIPOSOMAL) XX SCH (16:00)
--- NOTE | 2016-12-13 16:04 | HPN ---
Date/Time of Note Date/Time of Note DATE: 12/13/16 TIME: 16:03 Interval H&P Admission Note Pt. seen H&P reviewed: No system changes No changes from H&P on 12/05/16 by RUTH Kam MD Dec 13, 2016 16:03
[2016-12-13] MEDS ORDERED: SODIUM CL BACTERIOSTATIC 30 ML INJ ONE (16:14)
[2016-12-13] MEDS ORDERED: VANCOMYCIN 1 GM INJ ONE (16:14)
[2016-12-13] MEDS ORDERED: POLYMYXIN B 500000 UNIT INJ ONE (16:14)
[2016-12-13] MEDS ORDERED: BACITRACIN 50000 UNITS INJ ONE (16:25)
[2016-12-13] MEDS ORDERED: ALBUTEROL 0.083% (NEB) 2.5 MG/3 ML AMP HHN PRN (17:30)
[2016-12-13] MEDS ORDERED: hydrALAzine 20 MG INJ IV PRN (17:30)
[2016-12-13] MEDS ORDERED: LABETALOL HCL 20MG INJ IV PRN (17:30)
[2016-12-13] MEDS ORDERED: DIPHENHYDRAMINE 50 MG INJ IV PRN (17:30)
[2016-12-13] MEDS ORDERED: IPRATROPIUM (NEB) 0.5 MG/2.5 ML AMP HHN PRN (17:30)
[2016-12-13] MEDS ORDERED: HYDROmorphONE (0.2 MG/ML) 10ML SYG IV PRN ×3 (17:30)
[2016-12-13] MEDS ORDERED: EPHEDrine SULFATE 50 MG/5 ML SYG IV PRN (17:30)
[2016-12-13] MEDS ORDERED: TRIMETHOBENZAMIDE 100 MG/ML VIAL IM PRN (17:30)
[2016-12-13] MEDS ORDERED: MEPERIDINE 25 MG INJ IV PRN (17:30)
[2016-12-13] MEDS ORDERED: OXYCODONE/ACETAMINOPHEN (5/325) TAB PO PRN ×4 (17:30→18:00)
[2016-12-13] MEDS ORDERED: FENTAnyl 50 MCG/ML VIAL IV PRN ×3 (17:30)
[2016-12-13] MEDS ORDERED: MIDAZOLAM 1 MG/ML 2 ML INJ IV PRN (17:30)
[2016-12-13] MEDS ORDERED: ONDANSETRON 4 MG INJ IV PRN ×2 (17:30→19:30)
--- NOTE | 2016-12-13 19:14 | PN ---
Date/Time of Note Date/Time of Note DATE: 12/13/16 TIME: 19:13 Assessment/Plan Lines/Catheters IV Catheter Type (from Nrsg): Peripheral IV Assessment/Plan Assessment/Plan Stable in PACU, s/p right TKA -continue Ancef -pain meds as needed -ASA/SCDs -OOB with PT -monitor drain -check AM labs -d/c stack in AM XR of the right knee is pending at this time Subjective 24 Hr Interval Summary Stable in PACU. Denies pain. Moving all extremities. Exam/Review of Systems Vital Signs Vitals Vital Signs Date Time Temp Pulse Resp B/P Pulse Ox O2 Delivery O2 Flow Rate FiO2 12/13/16 13:23 97.7 85 20 135/69 96 Room Air Exam Free Text/Dictation Hemovac: minimal Dressing dry Incision clean, dry, and intact without redness or drainage Thigh soft 5/5 Quadriceps, Tibialis Anterior, EHL, Gastroc, Soleus, Peroneals Normal sensation Palpable DT/PT, CR <2 sec No distal edema SUE ALBERTO PA-C Dec 13, 2016 19:14
--- NOTE | 2016-12-13 19:25 | OPR ---
Date/Time of Note Date/Time of Note DATE: 12/13/16 TIME: 19:18 Operative Report Procedure Description DATE: 12/13/2016 PREOPERATIVE DIAGNOSIS: Right knee osteoarthritis POSTOPERATIVE DIAGNOSIS: Right knee osteoarthritis OPERATION PERFORMED: Right total knee arthroplasty. SURGEON: Ruth Berrios MD RESIDENT CARE DIRECTOR: Aron Lua PA-C COMPONENTS USED: DePuy Attune size 4 narrow cruciate retaining femoral component , size 2 tibial baseplate, 7 mm polyethylene insert, 32 patellar button ANESTHESIA: Spinal plus general endotracheal intubation, plus periarticular injection ANESTHESIOLOGIST: Tony Sun M.D. TOURNIQUET TIME: 67 minutes. ESTIMATED BLOOD LOSS: 50 cc INTRAVENOUS FLUIDS: 2,000 cc crystalloid SPECIMENS: Bone and soft tissue. DRAINS: Hemovac x1. COMPLICATIONS: None. DISPOSITION: The patient tolerated the procedure well and was taken to the recovery room in stable condition. INDICATIONS: The patient is an 81-year-old woman who has had progressively worsening pain in the right knee with radiographic evidence of severe osteoarthritis. She has failed nonsurgical means of treatment to address her pain including activity modifications, pain medications, and intra-articular injections. Despite these measures she has had worsening pain and I feel she will benefit from a total knee arthroplasty. The risks, benefits, and alternatives of the procedure were explained in detail to the patient. I explained the risks of the surgery to include but not be limited to, bleeding and possible need for blood transfusion; infection; pain; stiffness; neurovascular injury with possible numbness, weakness, and/or paralysis anywhere from the knee down to the toes; fracture; instability; dislocation; wear and/or loosening of the prosthesis and possible need for future revision; blood clots; pulmonary embolism; and anesthetic complications such as heart attack, stroke, GI bleed, pneumonia, and/or . Ample time was allowed for the patient to ask questions, all of which were addressed and answered. The patient understood the risks involved and wished to proceed. Informed consent was signed prior to the procedure. PROCEDURE: The patient's right knee was initialed with a marking pen in the preoperative area to identify the correct operative site. The patient was brought to the operating room and transferred from the [facility] to the operating table where a spinal anesthetic was administered. The patient was then anesthetized and intubated. A Kang catheter was placed. A timeout was performed to confirm that the right leg was the correct operative site. The patient was given 2 g of Ancef within one hour prior to the procedure. A tourniquet was placed on the operative proximal thigh. The operative knee and lower extremity were prepped and draped in the usual sterile fashion. The operative lower extremity was elevated and exsanguinated with an Esmarch tourniquet. The proximal thigh tourniquet was inflated to 300 mmHg. The knee was flexed. A midline incision was made and carried down through the subcutaneous tissue and fat with sharp dissection. Limited medial and lateral flaps were raised. A medium parapatellar approach was performed. Synovial fluid was normal in color and consistency. The patella was everted and the knee flexed. There were severe tricompartmental osteoarthritic changes noted. A medial release was performed at the joint line to the midcoronal plane. The ACL of the menisci were excised. The PCL was intact. The stepped drill was used to open up the femoral canal which was irrigated and sucked dry. The Causata navigation device was pinned into the distal femur setting the varus/valgus cut at 0 and the flexion at 3. This was pinned into place and the oscillating saw was used to take off 10 mm of bone off distally. The oscillating saw was used to make the cut. The tibia was subluxed anteriorly. The tibial cutoff jig was placed over the center of the talus distally and over the junction of the medial and middle third of the tibial tubercle proximally. The guide was pinned into place and the oscillating saw was used to make the cut. The tibia was sized. The extension gap was checked and accommodated a 7 mm spacer block with the knee in full extension. There was no varus or valgus instability. At this point, the femur was sized with the posterior referencing guide. Two holes were drilled in 3 degrees of external rotation. The two holes were in line with the transepicondylar axis, perpendicular to [place]'s line, and in line with the tibial cutoff jig brought up with the knee flexed 90 degrees and tensed with 2 lamina spreaders, suggesting the femoral rotation was correct. The four-in-one cutting block was pinned into place. The anterior and posterior cuts and chamfer cuts were made with the oscillating saw. The flexion gap was checked and accommodated the 7 mm spacer block at 90 degrees. There was no varus or valgus instability, suggesting the flexion and extension gaps were now equal. The central box was cut out on the femur. The tibia was drilled and punched in proper rotation. Trial components were placed into position with a trial insert. The patella was cut down to 13 mm and sized. Three holes were drilled and the trial button placed in position. With all the trials now in place, the knee was taken through range of motion and came to full extension as evidenced by the fact that with the foot on my abdomen and axial loading, there was no tendency for the knee to flex. The knee was able to be flexed to 125 degrees with good patellar tracking with no lateral tilt or subluxation. At this point, I was satisfied with the overall range of motion, stability, and patellar tracking. The trials were removed. The real components were opened. Two bags of cement were mixed, one with and one without premixed antibiotic. The knee was irrigated with antibiotic saline and sucked dry. Once the cement was in a doughy stage, the real components were cemented into place. The knee was held in full extension, and the patellar component was held with a patellar clamp. All excess cement was removed with curettes. As the cement was hardening, the synovial/capsular layer was infiltrated with a mixture of 150 mg of 0.5% Bupivacaine, 8 mg of Duramorph, 300 mcg of epinephrine, 30 mg of Toradol, 100 mcg of clonidine, 750 mg of cefuroxime and 86 mL of normal saline, followed by an injection of 266 mg of liposomal Bupivacaine. A Hemovac drain was placed in the deep portion of the wound and brought out the anterolateral thigh. Once the cement was completely hardened, the trial liner was removed, and the real insert was opened. The tourniquet was let down, and there was good hemostasis. The knee was then irrigated with a mixture of betadine/saline and then antibiotic saline with pulsatile lavage. The real insert was impacted into the tibia and reduced onto to the femur. The arthrotomy was closed with a few interrupted #1 Ethibond in a figure-of- eight fashion, and then closed in a watertight fashion with a running #2 Stratafix suture. Knee flexion was checked against gravity and came to 125 degrees. The subcutaneous layer was irrigated and closed with 2-0 Statafix, and then 3-0 Vicryl and then kate on the skin. The wound was covered with an occlusive dressing, and secured with cast padding and a bias dressing. The drain was secured with 3-0 nylon. The sponge and needle counts were correct at the end of the case. The patient was then awakened, extubated, and taken to the recovery room in stable condition. RUTH BERRIOS MD Dec 13, 2016 19:25
[2016-12-13 19:26] LABS: HEMATOCRIT 36.3 % (37.0-47.0); HEMOGLOBIN 12.2 g/dl (12.0-16.0)
[2016-12-13] MEDS ORDERED: HYDROCODONE/APAP (7.5/325) TAB PO PRN ×2 (19:30)
[2016-12-13] MEDS ORDERED: MAGNESIUM HYDROXIDE 30ML CUP PO PRN (19:30)
[2016-12-13] MEDS ORDERED: HYDROmorphONE 1 MG/ML SYG IV PRN (19:30)
[2016-12-13] MEDS ORDERED: ALBUTEROL 18 GM INHALER INH PRN (19:30)
[2016-12-13] MEDS ORDERED: NACL 0.9% 3 ML SYG IV SCH (19:30)
[2016-12-13] MEDS ORDERED: DIPHENHYDRAMINE 25 MG CAP PO PRN (19:30)
[2016-12-13] MEDS ORDERED: NA PHOSPHATE/BIPHOS 133 ML ENEMA PR PRN (19:30)
[2016-12-13] MEDS ORDERED: BISACODYL 10 MG SUPP PR PRN (19:30)
[2016-12-13] MEDS ORDERED: ASPIRIN (EC) 325 MG TAB PO ONE (19:30)
[2016-12-13 19:33] LABS: ADD UMIC NO; UR ASCORBIC ACID NEGATIVE (NEGATIVE); UR BILIRUBIN (Dip) NEGATIVE (NEGATIVE); UR BLOOD (Dip) NEGATIVE (NEGATIVE); UR CLARITY CLEAR (CLEAR); UR COLOR STRAW (YELLOW); UR GLUCOSE (Dip) 1+ mg/dL (NEGATIVE); UR KETONES (Dip) TRACE mg/dL (NEGATIVE); UR LEUKOCYTE ESTERASE (Dip) NEGATIVE Leu/ul (NEGATIVE); UR NITRITE (Dip) NEGATIVE (NEGATIVE); UR SPECIFIC GRAVITY (Dip) 1.013 (1.003-1.030); UR TOTAL PROTEIN (Dip) NEGATIVE (NEGATIVE); UR UROBILINOGEN (Dip) NEGATIVE (NEGATIVE)
[2016-12-13] MEDS: CEFAZOLIN 2 GM/50 ML (PMX) 50 ML IVPB SCH (19:40)
[2016-12-13 19:46] LABS: POTASSIUM 3.9 mmol/L (3.5-5.1)
[2016-12-13 19:47] LABS: CALCIUM 8.4 mg/dl (8.4-10.2); CREATININE 0.64 mg/dl (0.44-1.00)
--- NOTE | 2016-12-13 20:15 | RADRPT ---
PROCEDURE: XR Knee. CLINICAL INDICATION: 81 years of age, female. Postop. TECHNIQUE: 2 views of the right knee. COMPARISON: None available. FINDINGS: There is a cemented total knee replacement with the expected immediate postoperative appearance. Ne gative for evidence of component loosening or failure. There is a surgical drain in the anterior michael nt and there are anterior skin kate. IMPRESSION: Status post total knee replacement with the expected immediate postoperative appearance. RPTAT: HCTS Physician Bettina Date Time Electronically viewed and signed by Otoniel Wallis Physician on 12/13/2016 20:14 CS/
--- NOTE | 2016-12-13 20:28 | CONS ---
Date/Time of Note Date/Time of Note DATE: 12/13/16 TIME: 20:24 Assessment/Plan Assessment/Plan Chief Complaint/Hosp Course 81 yo F admitted for elective RTKA for whom we are consulted for med mgt PLAN: Patient has no significant med conditions We will provide supportive care and pain control Problems: Consultation Date/Type/Reason Admit Date/Time Dec 13, 2016 at 12:32 Date of Consultation: Dec 13, 2016 Type of Consultation: Medical Reason for Consultation Med mgt Referring Provider: RUTH BERRIOS MD Hx of Present Illness 81-year-old fairly healthy female who has a past medical history of just osteoarthritis who came in today for an elective right total knee arthroplasty. Surgery was uneventful and patient is being evaluated in the immediate postop. She is somewhat lethargic but has no new complaints. We have been consulted for medical management. patient very lethargic, Pertinent findings as noted Past Medical History * OA / DJD Past Surgical History Past Surgical Hx: other (abd surgery, L Knee TKA) Family History Significant Family History: no pertinent family hx Social History Alcohol Use: none Smoking Status: Never smoker Drug Use: none Exam/Review of Systems Vital Signs Vitals VS - Last 72 Hours, by Label Date Time Temp Pulse Resp B/P Pulse Ox O2 Delivery O2 Flow Rate FiO2 12/13/16 20:05 86 14 125/55 94 Room Air 12/13/16 20:00 86 17 117/53 97 Room Air 12/13/16 19:55 88 14 120/62 95 Room Air 12/13/16 19:50 92 16 127/65 93 Room Air 12/13/16 19:45 88 18 110/56 94 Room Air 12/13/16 19:40 86 14 106/44 94 Room Air 12/13/16 19:35 86 13 111/50 95 Room Air 12/13/16 19:30 86 14 107/47 95 Room Air 12/13/16 19:25 88 13 103/65 95 Room Air 12/13/16 19:20 90 17 104/55 95 Room Air 12/13/16 19:15 90 13 103/56 95 Room Air 12/13/16 19:10 90 14 106/51 97 Room Air 12/13/16 19:05 98.3 92 16 114/45 96 Room Air 12/13/16 13:23 97.7 85 20 135/69 96 Room Air Vital Signs Date Time Temp Pulse Resp B/P Pulse Ox O2 Delivery O2 Flow Rate FiO2 12/13/16 20:05 86 14 125/55 94 Room Air 12/13/16 19:05 98.3 Exam Constitutional: alert, other (elderly) Psych: nl mood/affect Eyes: PERRL, nl conjunctiva ENMT: mucosa pink and moist, other (no teeth) Neck: supple Respiratory: clear to auscultation, diminished breath sounds (R >L), No crackles/rales, No labored breathing, No wheezing Cardiovascular: regular rate and rhythm, No murmurs/extra sounds Gastrointestinal: bowel sounds, non-tender, soft, surgical scars (old R sided scar well healed) Genitourinary - Female: other Extremities: other (R leg bandaged from just below hip to just above ankle. drain to suction draining blood. ), No edema Skin: No rash or lesions Results Result Diagram: 12/13/16191912/13/161919 Results 24 hrs Laboratory Tests Test 12/13/16 19:07 12/13/16 19:20 Urine Color STRAW Urine Clarity CLEAR Urine pH 5.0 Urine Specific [place] 1.013 Urine Ketones TRACE A Urine Nitrite NEGATIVE Urine Bilirubin NEGATIVE Urine Urobilinogen NEGATIVE Urine Leukocyte Esterase NEGATIVE Urine Hemoglobin NEGATIVE Urine Glucose 1+ H Urine Total Protein NEGATIVE Hemoglobin 12.2 Hematocrit 36.3 L Sodium Level 139 Potassium Level 3.9 Chloride Level 101 Carbon Dioxide Level 26 Anion Gap 16 Blood Urea Nitrogen 10 Creatinine 0.64 Glucose Level 196 Calcium Level 8.4 Medications Medications Current Medications Miscellaneous Information 1 ea NOTE XX ; Start 12/13/16 at 16:00; Stop 12/16/16 at 16:01 Albuterol (Ventolin Hfa) 2 puff Q6H PRN INH WHEEZING AND SOB; Start 12/13/16 at 19:30 Loratadine 10 mg 10 mg DAILY PO ; Start 12/14/16 at 09:00 Lactated Ringer's (Lr) 1,000 ml @ 125 mls/hr Q8H IV ; Start 12/13/16 at 19:07 Tramadol HCl (Ultram) 50 mg Q6 PO ; Start 12/13/16 at 12:00; Stop 12/16/16 at 11 :59 Hydromorphone HCl 1 mg 1 mg Q3H PRN IV PAIN LEVEL 8-10; Start 12/13/16 at 19:30 Cefazolin Sodium/ Dextrose (Ancef 2 Gm/50 ml (Pmx)) 50 ml @ 100 mls/hr Q8H IVPB Last administered on 12/13/16t 19:40; Admin Dose 100 MLS/HR; Start at 19:30; Stop 12/14/16 at 11:59 Ondansetron HCl (Zofran Inj) 4 mg Q6H PRN IV NAUSEA AND/OR VOMITING; Start at 19:30 Bisacodyl (Dulcolax Supp) 10 mg Q12H PRN [place] CONSTIPATION; Start 12/13/16 at 19: 30 Magnesium Hydroxide (Milk Of Mag) 30 ml BID PRN PO CONSTIPATION; Start at 19:30 Sodium Biphosphate/ Sodium Phosphate (Fleet Enema) 133 ml DAILY PRN [place] CONSTIPATION; Start 12/13/16 at 19:30 Docusate Sodium (Colace) 100 mg BID PO ; Start 12/13/16 at 21:00 Diphenhydramine HCl (Benadryl) 25 mg Q6H PRN PO PRURITUS; Start 12/13/16 at 19: 30 Acetaminophen/ Hydrocodone Bitart ([place] (7.5-325)) 1 tab Q4H PRN PO PAIN LEVEL 1-3; Start 12/13/16 at 19:30 Acetaminophen/ Hydrocodone Bitart ([place] (7.5-325)) 2 tab Q4H PRN PO PAIN LEVEL 4-7; Start 12/13/16 at 19:30 Aspirin (Ecotrin) 325 mg BID PO ; Start 12/14/16 at 09:00 Pantoprazole (Protonix Tab) 40 mg BID@06,18 PO ; Start 12/14/16 at 06:00 Pregabalin (Lyrica) 50 mg BID PO ; Start 12/13/16 at 21:00 Procedures Procedures PROCEDURE: XR Knee. CLINICAL INDICATION: 81 years of age, female. Postop. TECHNIQUE: 2 views of the right knee. COMPARISON: None available. FINDINGS: There is a cemented total knee replacement with the expected immediate postoperative appearance. Negative for evidence of component loosening or failure. There is a surgical drain in the anterior joint and there are anterior skin kate. IMPRESSION: Status post total knee replacement with the expected immediate postoperative appearance. RPTAT: HCTS Otoniel Wallis, Physician Date Time Electronically viewed and signed by Otoniel Wallis, Physician on 12/13/2016 20: 14 GRACIELA/ ORION BOUDREAUX Dec 13, 2016 20:28
[2016-12-13] MEDS: LACTATED RINGER'S 1,000 ML IV SCH (20:30)
[2016-12-13] MEDS: PREGABALIN 50 MG CAP PO SCH (21:00)
[2016-12-13] MEDS: DOCUSATE SODIUM 100 MG CAP PO SCH (21:00)
[2016-12-13] MEDS ORDERED: TRANEXAMIC ACID 730 MG in SOD CHLORIDE 0.9% 100 ML IVPB ONE (22:30)
[2016-12-14 00:30] VITALS: BP 108/59; RESP 20
[2016-12-14] MEDS ORDERED: TRANEXAMIC ACID 730 MG in SOD CHLORIDE 0.9% 100 ML IVPB ONE (01:30)
[2016-12-14 03:30] VITALS: BP 94/54; RESP 20
[2016-12-14] MEDS: CEFAZOLIN 2 GM/50 ML (PMX) 50 ML IVPB SCH ×2 (03:38→12:00)
[2016-12-14] MEDS: LACTATED RINGER'S 1,000 ML IV SCH ×3 (03:39→19:07)
[2016-12-14 03:45] VITALS: BP 101/58; RESP 16
[2016-12-14 05:24] LABS: HEMATOCRIT 36.3 % (37.0-47.0); HEMOGLOBIN 12.3 g/dl (12.0-16.0)
[2016-12-14 05:45] LABS: CALCIUM 8.8 mg/dl (8.4-10.2); CREATININE 0.65 mg/dl (0.44-1.00); POTASSIUM 5.2 mmol/L (3.5-5.1)
[2016-12-14] MEDS: PANTOPRAZOLE (EC) 40 MG TAB PO SCH ×2 (06:00→18:26)
[2016-12-14] MEDS: traMADol 50 MG TAB PO SCH ×4 (06:00→18:00)
[2016-12-14 08:09] VITALS: BP 101/61; RESP 19
[2016-12-14 08:24] LABS: ADD UMIC YES; UR ASCORBIC ACID NEGATIVE (NEGATIVE); UR BACTERIA FEW /HPF (NONE SEEN); UR BILIRUBIN (Dip) NEGATIVE (NEGATIVE); UR BLOOD (Dip) NEGATIVE (NEGATIVE); UR CLARITY CLEAR (CLEAR); UR COLOR COLORLESS (YELLOW); UR GLUCOSE (Dip) NEGATIVE (NEGATIVE); UR KETONES (Dip) NEGATIVE (NEGATIVE); UR LEUKOCYTE ESTERASE (Dip) TRACE Leu/ul (NEGATIVE); UR NITRITE (Dip) NEGATIVE (NEGATIVE); UR RBC 1 /HPF (0-5); UR SPECIFIC GRAVITY (Dip) 1.006 (1.003-1.030); UR TOTAL PROTEIN (Dip) NEGATIVE (NEGATIVE); UR UROBILINOGEN (Dip) NEGATIVE (NEGATIVE)
--- NOTE | 2016-12-14 09:21 | PN ---
Date/Time of Note Date/Time of Note DATE: 12/14/16 TIME: 09:20 Assessment/Plan Lines/Catheters IV Catheter Type (from Nrsg): Peripheral IV Kang in Place (from Nrsg): Yes Assessment/Plan Assessment/Plan Stable, POD #1, s/p right TKA -d/c Ancef -pain meds as needed -ASA/SCDs -OOB with PT -check AM labs -drain removed -d/c planning for home Subjective 24 Hr Interval Summary No acute overnight events. Denies significant pain. VSS,afebrile. Will plan to go home upon discharge. Exam/Review of Systems Vital Signs Vitals Vital Signs Date Time Temp Pulse Resp B/P Pulse Ox O2 Delivery O2 Flow Rate FiO2 12/14/16 08:09 98.0 71 19 101/61 98 12/14/16 03:45 Nasal Cannula 12/13/16 20:10 2.0 Intake and Output 12/13/16 12/13/16 12/14/16 14:59 22:59 06:59 Intake Total 2150 ml 1325 ml Output Total 330 ml 2600 ml Balance 1820 ml -1275 ml Exam Free Text/Dictation Hemovac: 130cc Dressing dry Incision clean, dry, and intact without redness or drainage Thigh soft 5/5 Quadriceps, Tibialis Anterior, EHL, Gastroc, Soleus, Peroneals Normal sensation Palpable DT/PT, CR <2 sec No distal edema Results Result Diagram: 12/14/1642412/14/165 SUE ALBERTO PA-C Dec 14, 2016 09:20
[2016-12-14] MEDS: LORATADINE 10 MG TAB PO SCH (09:23)
[2016-12-14] MEDS: DOCUSATE SODIUM 100 MG CAP PO SCH ×2 (09:23→20:52)
[2016-12-14] MEDS: PREGABALIN 50 MG CAP PO SCH ×2 (09:23→20:52)
[2016-12-14] MEDS: ASPIRIN (EC) 325 MG TAB PO SCH ×2 (09:23→20:52)
--- NOTE | 2016-12-14 12:38 | PN ---
Date/Time of Note Date/Time of Note DATE: 12/14/16 TIME: 12:35 Assessment/Plan VTE Prophylaxis VTE Prophylaxis Intervention: SCD's, other (ASA 325 mg BID ) Lines/Catheters IV Catheter Type (from Nrsg): Peripheral IV Urinary Cath still in place: Yes Reason Cath still needed: other (indicate) (post op knee surgery ) Assessment/Plan Assessment/Plan 1. S/p right BKA 2. Right knee pain 3. hyperkalemia K 5.2 Plan : continue current pain regiment Bp stable beckamarissaitin ASA 325 mg BID for DVT prophylaxis kayexalate 15 gram po x1 today for higher K will follow up Subjective 24 Hr Interval Summary Free Text/Dictation no events, pain controlled, BP stable Exam/Review of Systems Vital Signs Vitals Vital Signs Date Time Temp Pulse Resp B/P Pulse Ox O2 Delivery O2 Flow Rate FiO2 12/14/16 08:09 98.0 71 19 101/61 98 12/14/16 03:45 Nasal Cannula 12/13/16 20:10 2.0 Intake and Output 12/13/16 12/13/16 12/14/16 15:00 23:00 07:00 Intake Total 2150 ml 1325 ml Output Total 330 ml 2600 ml Balance 1820 ml -1275 ml Exam Constitutional: alert Psych: no complaints Head: normocephalic Eyes: nl conjunctiva ENMT: nl external ears & nose Neck: supple Respiratory: clear to auscultation, normal air movement Cardiovascular: nl pulses, regular rate and rhythm Gastrointestinal: non-tender, soft Musculoskeletal: other (hemovac in place ) Extremities: normal pulses Neurological: HAIRSPRING VIBRATOR II-XII intact Skin: nl turgor Lymph: nl lymph nodes Results Result Diagram: 12/14/16 0425 12/14/16 0425 Results 24 hrs Laboratory Tests Test 12/13/16 19:07 12/13/16 19:20 12/14/16 04:25 12/14/16 07:15 Urine Color STRAW COLORLESS Urine Clarity CLEAR CLEAR Urine pH 5.0 7.0 Urine Specific [place] 1.013 1.006 Urine Ketones TRACE A NEGATIVE Urine Nitrite NEGATIVE NEGATIVE Urine Bilirubin NEGATIVE NEGATIVE Urine Urobilinogen NEGATIVE NEGATIVE Urine Leukocyte Esterase NEGATIVE TRACE A Urine Hemoglobin NEGATIVE NEGATIVE Urine Glucose 1+ H NEGATIVE Urine Total Protein NEGATIVE NEGATIVE Hemoglobin 12.2 12.3 Hematocrit 36.3 L 36.3 L Sodium Level 139 143 Potassium Level 3.9 5.2 H Chloride Level 101 101 Carbon Dioxide Level 26 28 Anion Gap 16 19 H Blood Urea Nitrogen 10 9 Creatinine 0.64 0.65 Glucose Level 196 179 Calcium Level 8.4 8.8 Urine Microscopic RBC 1 Urine Microscopic WBC 1 Urine Bacteria FEW A Medications Medications Current Medications Miscellaneous Information 1 ea NOTE XX ; Start 12/13/16 at 16:00; Stop 12/16/16 at 16:01 Albuterol (Ventolin Hfa) 2 puff Q6H PRN INH WHEEZING AND SOB; Start 12/13/16 at 19:30 Loratadine 10 mg 10 mg DAILY PO Last administered on 12/14/16 09:23; Admin Dose 10 MG; Start 12/14/16 at 09:00 Lactated Ringer's (Lr) 1,000 ml @ 125 mls/hr Q8H IV Last administered on 03:39; Admin Dose 125 MLS/HR; Start 12/13/16 at 19:07 Tramadol HCl (Ultram) 50 mg Q6 PO Last administered on 12/14/16 12:02; Admin Dose 50 MG; Start 12/13/16 at 12:00; Stop 12/16/16 at 11:59 Hydromorphone HCl (Dilaudid) 1 mg Q3H PRN IV PAIN LEVEL 8-10; Start 12/13/16 at 19:30 Ondansetron HCl (Zofran Inj) 4 mg Q6H PRN IV NAUSEA AND/OR VOMITING; Start at 19:30 Bisacodyl (Dulcolax Supp) 10 mg Q12H PRN [place] CONSTIPATION; Start 12/13/16 at 19: 30 Magnesium Hydroxide (Milk Of Mag) 30 ml BID PRN PO CONSTIPATION; Start at 19:30 Sodium Biphosphate/ Sodium Phosphate (Fleet Enema) 133 ml DAILY PRN [place] CONSTIPATION; Start 12/13/16 at 19:30 Docusate Sodium (Colace) 100 mg BID PO Last administered on 12/14/16 09:23; Admin Dose 100 MG; Start 12/13/16 at 21:00 Diphenhydramine HCl (Benadryl) 25 mg Q6H PRN PO PRURITUS; Start 12/13/16 at 19: 30 Acetaminophen/ Hydrocodone Bitart ([place] (7.5-325)) 1 tab Q4H PRN PO PAIN LEVEL 1-3; Start 12/13/16 at 19:30 Acetaminophen/ Hydrocodone Bitart ([place] (7.5-325)) 2 tab Q4H PRN PO PAIN LEVEL 4-7; Start 12/13/16 at 19:30 Aspirin (Ecotrin) 325 mg BID PO Last administered on 12/14/16 09:23; Admin Dose 325 MG; Start 12/14/16 at 09:00 Pantoprazole (Protonix Tab) 40 mg BID@06,18 PO ; Start 12/14/16 at 06:00 Pregabalin (Lyrica) 50 mg BID PO Last administered on 12/14/16 09:23; Admin Dose 50 MG; Start 12/13/16 at 21:00 SHARATH PIERRE MD Dec 14, 2016 12:38
[2016-12-14 14:00] VITALS: BP 121/59; RESP 19
[2016-12-14] MEDS ORDERED: NA POLYST SULFON 15 GM/60 ML BTL PO ONE (14:00)
[2016-12-14 21:31] VITALS: BP 111/59; PULSE 86; RESP 17
[2016-12-15 02:00] VITALS: BP 105/50; PULSE 74; RESP 19
[2016-12-15] MEDS: LACTATED RINGER'S 1,000 ML IV SCH ×2 (03:07→11:07)
[2016-12-15] MEDS: traMADol 50 MG TAB PO SCH ×3 (05:10→11:32)
[2016-12-15 05:40] LABS: CALCIUM 8.4 mg/dl (8.4-10.2); CREATININE 0.85 mg/dl (0.44-1.00); POTASSIUM 4.6 mmol/L (3.5-5.1)
[2016-12-15] MEDS: PANTOPRAZOLE (EC) 40 MG TAB PO SCH (06:00)
--- NOTE | 2016-12-15 07:52 | PN ---
Date/Time of Note Date/Time of Note DATE: 12/15/16 TIME: 07:50 Assessment/Plan VTE Prophylaxis VTE Prophylaxis Intervention: ambulation, SCD's, other (Aspirin 325 mg twice daily) Lines/Catheters IV Catheter Type (from Nrsg): Saline Lock Kang in Place (from Nrsg): Yes Assessment/Plan Assessment/Plan -Pain Meds as needed -Dress change performed today -ASA for DVT Prophylaxis x 6 weeks outpatient discussed. -Continue monitoring as outpatient on discharge -Follow-up at scheduled postop outpatient appointment or sooner if there is any issue. -Tegaderm dressings given with specific instructions to use as outpatient to keep wound dry until kate are moved around 10 days. -Patient Stable -Discharge to Home with home health pending hematocrit and hemoglobin results. Subjective 24 Hr Interval Summary 81-year-old female postop day 2 status post right total knee arthroplasty. Patient reports minimal pain complaints to the right knee. Patient has been up with physical therapy. Continues with some weakness with flexion and extension. Patient requesting to go home today. Constitutional: no complaints Pain Control: well controlled Exam/Review of Systems Vital Signs Vitals Vital Signs Date Time Temp Pulse Resp B/P Pulse Ox O2 Delivery O2 Flow Rate FiO2 12/15/16 02:00 97.7 74 19 105/50 97 Room Air 12/13/16 20:10 2.0 Intake and Output 12/14/16 12/14/16 12/15/16 15:00 23:00 07:00 Intake Total 925 ml 1200 ml 400 ml Output Total 900 ml Balance 925 ml 1200 ml -500 ml Exam Free Text/Dictation -Incision: Clean, Dry and Intact without any redness or drainage -5/5 Tibialis Anterior, EHL Gastrocnemius/Soleus and Peroneals -Normal Sensation -Palpable DP/PT, Capillary Refill <2 secs -No Distal Edema -Negative [place]o Sign/No calf pain -Toes Freely Movable Constitutional: alert, oriented, well developed Results Result Diagram: 12/14/16 0425 12/15/16 0438 PEDRO LEVINE PA-C Dec 15, 2016 07:52
--- NOTE | 2016-12-15 07:54 | PDOCDIS ---
Discharge Instructions DIAGNOSIS Discharge Diagnosis Status post right total knee arthroplasty CONDITION Patient Condition: Stable HOME CARE INSTRUCTIONS: Diet Instructions: RegularSpecial Diet: regular ACTIVITY: Activity Restrictions: Slowly Increase Activity Rest between Activity Avoid heavy lifting No Sexual Activity Do not Drive Do not operate Machinery Do not operate Power Tool Avoid Heavy Housework Keep Limb Elevated (Use ice modalities while limits elevated at rest.) Weight Bearing (As tolerated with front wheeled walker) Bathing Restrictions: Shower (Using Tegaderm with pad. Apply prior to shower. Make sure area is dry before removing. Repeat the steps each day until kate are removed around 10 days postoperatively.) FOLLOW UP/APPOINTMENTS Follow-up Plan Follow-up at 10 days postop visit. PEDRO LEVINE PA-C Dec 15, 2016 07:54
[2016-12-15 08:00] VITALS: BP 126/68; RESP 18
[2016-12-15 08:06] LABS: HEMATOCRIT 34.6 % (37.0-47.0); HEMOGLOBIN 11.6 g/dl (12.0-16.0)
[2016-12-15] MEDS: DOCUSATE SODIUM 100 MG CAP PO SCH (09:17)
[2016-12-15] MEDS: PREGABALIN 50 MG CAP PO SCH (09:17)
[2016-12-15] MEDS: LORATADINE 10 MG TAB PO SCH (09:17)
[2016-12-15] MEDS: ASPIRIN (EC) 325 MG TAB PO SCH (09:18)
[2016-12-15 14:00] VITALS: BP 107/68; RESP 20
--- NOTE | 2016-12-17 10:54 | DS ---
Date/Time of Note Date/Time of Note DATE: 12/17/16 TIME: 10:52 Discharge Summary Admission/Discharge Info Admit Date/Time Dec 13, 2016 at 12:32 Discharge Date/Time Dec 15, 2016 at 17:05 Discharge Diagnosis Status post right total knee arthroplasty Patient Condition: Good Procedures Right total knee arthroplasty Hospital Course This is an 81-year-old female, who was seen in the clinic initially complaining of right knee pain. X-rays demonstrated advanced osteoarthritis of the right knee, and was thought she would benefit from right total knee arthroplasty. On 12/13/2016, the patient was admitted and taken to the operating room, where she underwent a right total knee arthroplasty. There were no intraoperative complications. The patient tolerated the procedure well. She was taken to the recovery room in stable condition. Pain was well-controlled oral pain medication. She was started on aspirin and SCDs for DVT prophylaxis. She remained hemodynamically stable and neurovascular intact throughout her hospital stay. She began physical therapy on postoperative day 1, continued to make a progress. Ultimately she was deemed stable for discharge home on postoperative day 2. Prior to discharge, the incision was inspected and noted to be clean, dry, and intact. Dressing changes were done prior to patient going home. Discharge instructions: The patient will be discharged home in stable condition. She is to resume a normal diet. She is weightbearing as tolerated on the right lower extremity. She will begin physical therapy with home health. She will be discharged home with a medication noted, and is to resume all her normal home medication. The patient is to call the office or go to emergency room for any concerns including increased redness, swelling, drainage , fever, or any concerns regarding the operation or site of incision per Home Meds Reported Medications Albuterol Sulfate* (Proair HFA*) 8.5 Gm Hfa.aer.ad, 2 PUFF INH Q6 Y for WHEEZING AND SOB, #1 INHALER 12/13/16 Omeprazole* (Omeprazole*) 20 Mg Capsule.dr, 20 MG PO DAILY, #30 CAP 12/13/16 Loratadine* (Claritin*) 10 Mg Capsule, 10 MG PO DAILY, CAP 12/13/16 Discontinued Reported Medications Ibuprofen* (Ibuprofen*) 600 Mg Tablet, 600 MG PO Q8 Y for PAIN, TAB 12/13/16 Losartan Potassium* (Losartan Potassium*) 25 Mg Tablet, 12.5 MG PO DAILY, TAB 12/13/16 Etodolac (Etodolac) 400 Mg Tablet, 400 MG PO BID, TAB 12/13/16 Aspirin* (Aspirin* Chew) 81 Mg Tab.chew, 81 MG PO DAILY, TAB.CHEW 12/13/16 Salmeterol Xinaf/Fluticasone* (Advair*) 250-50 Diskus Inhaler, 1 INH INHALATION BID, #1 INHALER 12/13/16 Salmeterol Xinaf/Fluticasone* (Advair*) 250-50 Diskus Inhaler, 1 INH INHALATION BID, #1 INHALER 12/13/16 Montelukast Sodium* (Montelukast Sodium*) 10 Mg Tablet, 10 MG PO QHS, #30 TAB 12/13/16 Gabapentin* (Gabapentin*) 400 Mg Capsule, 400 MG PO QHS, #90 CAP 12/13/16 Discontinued Scripts Hydrocodone/Acetaminophen ([place] 7.5-325 Tablet) 1 Each Tablet, 1 EACH PO Q4 for PAIN, #60 TAB Prov:SUE ALBERTO PA-C 08/17/16 Gabapentin* (Neurontin*) 300 Mg Capsule, 300 MG PO TID, #90 CAP Prov:SUE ALBERTO PA-C 08/17/16 Tramadol HCl (Tramadol HCl) 50 Mg Tablet, 50 MG PO Q6 for 30 Days, #60 TAB Prov:SUE ALBERTO PA-C 08/17/16 Pantoprazole* (Pantoprazole*) 40 Mg Tablet.dr, 40 MG PO BID@06,18 for 40 Days, # 40 Prov:SUE ALBERTO PA-C 08/17/16 Aspirin (Aspir-Shala) 325 Mg Tablet.dr, 325 MG PO BID for 42 Days, #84 Prov:SUE ALBERTO PA-C 08/17/16 Follow-up Plan Follow-up in the office on 12/26/2016 Primary Care Provider MD REMY Victor ASHKHAN N. PA-C Dec 17, 2016 10:54
== END 2016-12-15 17:05 | disposition home health service (06) | DRG 470 ==
LOC: REC 12:32 → MS1 20:15
PROVIDERS: ADMIT Orthopaedic Surgery; ATTEND Orthopaedic Surgery
PROC: 0SRC0J9 Replacement of Right Knee Joint with Synthetic Substitute, Cemented, Open Approach (ICD-10-PCS; principal; 2016-12-13 16:00)
DX: M17.11 Unilateral primary osteoarthritis, right knee (principal); E87.5 Hyperkalemia
CPT/HCPCS: 73560; 80048; 81001; 81003; 85014; 85018; 86850; 86900; 86901; 86920; 87081; 87086; 88304; 88311; 97110; 97116; 97163; 97530; C1776; C9290; J0171; J0690; J0697; J0735; J1100; J1885; J2250; J2274; J2405; J2710; J3010; J3370; J7120

== ENCOUNTER → 2016-12-26 | Outpatient (CLI) | payer OTHER ==
[~2016-12-26] MED LIST changes: +ALBU8.5H3 INH; -ASPI325T32 PO; -DESFLURANE 15 MIN ONE; -GABA300C PO; -HYDR-905 PO; -LIDOCAINE 2% (SDV) 5 ML INJ ONE; +LORA10CA PO; +OMEP20CA16 PO; -PANT40TA4 PO; -TRAM50TA2 PO
--- NOTE | 2016-12-26 09:48 | PN ---
Date/Time of Note Date/Time of Note DATE: 12/26/16 TIME: 09:45 Outpatient Progress Note HPI The patient presents today for her first postoperative evaluation. She is 12 days status post right total knee arthroplasty.She is doing well overall. She is doing physical therapy at home. She has been taking aspirin twice daily for DVT prophylaxis. Additionally she is taking the pain medicine as needed. She denies any fevers or chills. She denies any significant soft tissue swelling. She presents today for her first postoperative evaluation. Physical Exam On exam today, she is alert and oriented 4, and in no acute distress. Exam of the incision demonstrates to be clean, dry, and intact. Kate are in place. Range of motion is 075. Varus and valgus forces are stable. There is no erythema, warmth, pus, or drainage noted. Compartments are otherwise soft. Homans sign is negative. She is neurovascularly intact distally. Imaging: X-rays of the right knee were obtained today and reviewed by me. They demonstrate good anatomic alignment with no fractures or dislocations identified. Allergies Coded Allergies: No Known Allergies (Verified Allergy, Unknown, 12/13/16) Assessment/Plan Assessment: 10 days status post right total knee arthroplasty Plan: The kate removed today, and Steri-Strips were applied. She is to continue doing physical therapy with home health and transition to an outpatient physical therapy program. Additionally she is to continue aspirin 325 mg twice daily for DVT prophylaxis. She is to take the pain medicine as needed. She is to follow-up in [address] Schroeder at [facility]. Medications Home Meds Reported Medications Albuterol Sulfate* (Proair HFA*) 8.5 Gm Hfa.aer.ad, 2 PUFF INH Q6 Y for WHEEZING AND SOB, #1 INHALER 12/13/16 Omeprazole* (Omeprazole*) 20 Mg Capsule., 20 MG PO DAILY, #30 CAP 12/13/16 Loratadine* (Claritin*) 10 Mg Capsule, 10 MG PO DAILY, CAP 12/13/16 SUE ALBERTO PA-C Dec 26, 2016 09:48
--- NOTE | 2016-12-26 11:12 | RADRPT ---
PROCEDURE: XR Knee. CLINICAL INDICATION: Right knee pain TECHNIQUE: Two views of the right knee are available for review. COMPARISON: Right knee x-ray preop 08/15/2016; right knee x-ray postop 12/13/2016 FINDINGS: Right knee prosthesis is identified in anatomic location. No acute fracture or dislocation is seen. No hardware loosening or failure is identified. No other abnormality is identified. IMPRESSION: 1. Right knee replacement in anatomic location. 2. No acute fracture or dislocation is seen. 3. Excellent post surgical appearances. RPTAT: HMJB .Gerardo Shoemaker MD, MD Date Time Electronically viewed and signed by .Gerardo Shoemaker MD, MD on 12/26/2016 11:12 .B/
== END | disposition home or self-care (01) ==
LOC: HKI 09:25
PROVIDERS: ATTEND Orthopaedic Surgery
DX: Z09 Encounter for follow-up examination after completed treatment for conditions other than malignant neoplasm (principal); Z96.651 Presence of right artificial knee joint